=== PATIENT | female | born 1960 | race Caucasian/White ===

== ENCOUNTER → 2017-02-12 | Outpatient (CLI) | payer BC ==
[~2017-02-12] MED LIST: ASCA500 PO; CHOL1000 PO; LEVO125T72 PO; LPR100 PO; NORE1TAB34 PO; PROB1TAB16 PO
== END | disposition home or self-care (01) ==
LOC: C.PAPS 10:16
PROVIDERS: ATTEND Obstetrics & Gynecology
DX: Z01.411 Encounter for gynecological examination (general) (routine) with abnormal findings (principal); R87.616 Satisfactory cervical smear but lacking transformation zone

== ENCOUNTER → 2017-02-20 | Outpatient (CLI) | payer BC ==
--- NOTE | 2017-02-20 14:14 | DIAGNOSTIC IMAGING REPORT ---
RIGHT FOOT MIN 3 VIEWS ROUTINE CLINICAL HISTORY: RIGHT FOOT/HEEL PAIN Right pain COMPARISON: None. DISCUSSION: The bones and joint spaces appear intact. There is no evidence of fracture, dislocation or bony disease. There is no evidence for soft tissue swelling. IMPRESSION: Negative study. Electronically signed by: Omari Jonas M.D. 02/20/2017 2:12 PM Dictated Date/Time: 02/20/2017 2:12 PM
== END | disposition home or self-care (01) ==
LOC: C.RADBC 13:39
PROVIDERS: ATTEND Physician Assistant
DX: M79.671 Pain in right foot (principal)

== ENCOUNTER → 2018-02-13 | Outpatient (CLI) | payer OTHER | END | disposition home or self-care (01) | LOC: C.PAPS 17:28 | PROVIDERS: ATTEND Obstetrics & Gynecology | DX: Z12.4 Encounter for screening for malignant neoplasm of cervix (principal) ==

== ENCOUNTER 2022-09-11 23:02 | Observation (INO) ==
[2022-09-11] MEDS ORDERED: ONDANSETRON INJ 2 MG/ML 2 ML VIAL IV STA (23:21)
[2022-09-11] MEDS ORDERED: MoRPHine SULFATE 4 MG/ML 1 ML CARP\\VIAL IV STA (23:21)
[2022-09-11] MEDS ORDERED: SODIUM CHLORIDE 0.9% 500 ML IV STA (23:21)
[2022-09-11] MEDS ORDERED: KETOROLAC TROMETHAMINE 15 MG/ML VIAL IV STA (23:21)
--- NOTE | 2022-09-11 23:25 | Emergency Department Note ---
History of Present Illness General Chief complaint: Kidney Stone Stated complaint: KIDNEY STONE MOVING, NAUSEA Time Seen by Provider: 09/11/22 23:13 History of Present Illness Maximum Pain Intensity: 4 This 62-year-old with a history of kidney stones presents to the ER complaining of right flank pain concerning for kidney stone Location: Right flank Quality: Painful Severity: Moderate Duration: Today Timing: Today Context: Patient was concerned and came in Modifying factors: better with nothing; worse with nothing Patient denies chest pain, dyspnea, fevers, flulike illness. She states she has a known kidney stone in the kidney. Home Medications Medication Instructions Recorded Confirmed Type levothyroxine 125 mcg tablet 125 mcg PO 6XWK 07/13/18 09/12/22 History (Synthroid) lactobacillus combination no.4 3 0 mmu cells PO QPM 11/05/18 09/12/22 History billion cell capsule (Probiotic) potassium citrate 15 mEq (1,620 15 meq PO BID #180 tabs 11/30/19 09/12/22 Rx mg) tablet,extended release metoprolol tartrate 50 mg tablet 50 mg PO QAM 08/17/20 09/12/22 History calcium carbonate 600 mg calcium 600 mg PO DAILY 05/02/21 09/12/22 History (1,500 mg) tablet (Calcium) cholecalciferol (vitamin D3) 50 50 mcg PO DAILY 05/02/21 09/12/22 History mcg (2,000 unit) capsule pantoprazole 40 mg tablet,delayed 40 mg PO QAM 05/02/21 09/12/22 History release (Protonix) cetirizine 10 mg tablet 10 mg PO DAILY PRN allergies 05/18/21 09/12/22 History magnesium 500 mg tablet 500 mg PO QAM 05/18/21 09/12/22 History letrozole 2.5 mg tablet 2.5 mg PO QAM 09/04/21 09/12/22 History tumeric 100 mg-jorge alberto 150 mg-olive cap PO 09/04/21 06/03/22 History 50 mg-oreg 150 mg-caprylate capsule rimegepant 75 mg disintegrating 75 mg PO .COMPLEX #15 tabs 06/03/22 09/12/22 Rx tablet (Nurtec ODT) losartan 100 mg tablet 100 mg PO QAM 09/12/22 09/12/22 History Allergies Allergy/AdvReac Type Severity Reaction Status Date / Time metoclopramide AdvReac Unknown RASH Verified 06/03/22 11:07 Past Med/Surg History Medical History Anemia RESOLVED Breast cancer bilateral mastectomy June 2020-[facility] and will be starting chemo, FINISHED CHEMO NOV 02 2020 Hypertension Hypothyroidism Kidney stones current , no problems with Lumbar radiculopathy Migraines Surgical History H/O foot surgery L Foot MOrtons neuroma H/O lithotripsy H/O mastectomy bilateral History of arthroscopy RT KNEE History of bilateral tubal ligation History of colonoscopy History of dilatation and curettage X2 polyp removal at same time History of removal of Port-a-Cath (05/29/21) Access Port Removal, Left 05/29/2021 Port-A-Cath in place (08/22/20) Insertion of Mediport Left Subclavian with Fluoroscopy 08/22/2020 S/P epidural steroid injection HX Family History Father Diabetes Heart disease Grandfather Heart disease Grandmother Stroke Social History Smoking Status: Never smoker Second Hand Exposure: No; Hx Alcohol Use: Yes Alcohol type: wine and hard liquor Alcohol Intake Frequency: 2-3 x/Week Hx Substance Use: No Preferred Language: Bengali Communication Ability: Effective Visual Impairment: No Limitations Hearing Ability: Normal Physical Education Aide Required: No Beliefs That Will Affect Care: None marital status: Current Living Situation: Alone current occupational status: retired Feels Safe at Home: Yes Assistive Devices: None Review of Systems A total of 10 systems reviewed and were otherwise negative Physical Exam Vital Signs Vital Signs - 24 hr 09/11/22 23:06 09/11/22 23:46 09/11/22 23:47 Temperature 36.6 C Temperature Source Temporal Artery Scan Pulse Rate 86 72 Pulse Rate from SpO2 Sensor Respiratory Rate 18 16 Respiratory Effort / Characteristics Non-Labored Spontaneous Respiratory Depth Normal Blood Pressure 160/92 H Blood Pressure [Left Arm] 169/85 H Blood Pressure Mean 114 Blood Pressure Mean [Left Arm] 113 Blood Pressure Position Sitting Pulse Oximetry 96 93 Oxygen Delivery Method Room Air Room Air Sepsis Recent Fever Within 48 Hours No Sepsis New/Unexplained Change in Mental Status No Sepsis Action Taken by Nursing No Action Required 09/12/22 00:00 Temperature Temperature Source Pulse Rate 67 Pulse Rate from SpO2 Sensor 66 Respiratory Rate 18 Respiratory Effort / Characteristics Respiratory Depth Blood Pressure 146/88 H Blood Pressure [Left Arm] Blood Pressure Mean 107 Blood Pressure Mean [Left Arm] Blood Pressure Position Pulse Oximetry 94 Oxygen Delivery Method Room Air Sepsis Recent Fever Within 48 Hours Sepsis New/Unexplained Change in Mental Status Sepsis Action Taken by Nursing VITALS: Vitals are noted on the nurse's note and reviewed by myself. Vital signs stable. GENERAL: Pleasant female who appears in pain, in no acute distress, nondiaphor etic, well-developed well-nourished. SKIN: The skin was without rashes, erythema, edema, or bruising. There is no tenting of the skin. Capillary reflex less than 2 seconds. HEAD: Normocephalic atraumatic. EARS: External auditory canals clear, EYES: Pupils equal round and reactive to light and accommodation. Conjunctivae without injection, sclerae without icterus. Extraocular movements intact. NOSE: Patent, turbinates without inflammation or discharge. MOUTH: Mucous membranes moist. Pharynx without erythema or exudate. Uvula midline. Airway patent. Tongue does not deviate. NECK: Supple without nuchal rigidity. No lymphadenopathy. No thyromegaly. Cervical spine is nontender. No JVD. HEART: Regular rate and rhythm LUNGS: Clear to auscultation bilaterally without wheezes, rales or rhonchi. No retractions or accessory muscle use. ABDOMEN: Positive bowel sounds x 4. Normal tympanic percussion. Soft, nontender, without masses or organomegaly. Tanner sign negative. No guarding or rebound tenderness. No CVA tenderness MUSCULOSKELETAL: No muscle atrophy, erythema, or edema noted. NEURO: Patient was alert and oriented to person place and time. Normal sensation to light and sharp touch. No focal neurological deficits. Course Administered Medications Discontinued Medications Sodium Chloride (Nss) 500 mls @ 999 mls/hr IV .Q31M STA Stop: 09/11/22 23:51 Last Infusion: 09/12/22 00:10 Dose: 0 mls/hr Documented By: JEAN CARLOS Admin: 09/11/22 23:39 Dose: 999 mls/hr Documented By: JENA CARLOS Ceftriaxone Sodium (Rocephin) 2,000 mg in 70 mls @ 140 mls/hr IV NOW STA Stop: 09/12/22 00:37 Last Infusion: 09/12/22 00:46 Dose: 0 mls/hr Documented By: Admin: 09/12/22 00:19 Dose: 140 mls/hr Documented By: JEAN CARLOS Ketorolac Tromethamine (Ketorolac Tromethamine 15 Mg/Ml Vial) 10 mg IV NOW STA Stop: 09/11/22 23:22 Last Admin: 09/11/22 23:40 Dose: 10 mg Documented By: JEAN CARLOS Morphine Sulfate (Morphine Sulfate 4 Mg/Ml 1 Ml Carp\Vial) 4 mg IV NOW STA Stop: 09/11/22 23:22 Last Admin: 09/11/22 23:41 Dose: 4 mg Documented By: JEAN CARLOS Ondansetron HCl (Ondansetron Inj 2 Mg/Ml 2 Ml Vial) 4 mg IV NOW STA Stop: 09/11/22 23:22 Last Admin: 09/11/22 23:40 Dose: 4 mg Documented By: JEAN CARLOS Medical Decision Making Medical Records Attestation: I reviewed the patient's medical records. Home Medications Current Medication List: was personally reviewed by me Laboratory Data Attestation: I reviewed the patient's lab results. Result diagrams: 09/11/22 23:20 09/11/22 23:20 Lab Results 09/11/22 09/11/22 09/11/22 Range/Units 23:20 23:20 23:20 WBC 11.96 H (4.8-10.8) K/ul RBC 4.80 (3.93-5.22) M/uL Hgb 14.5 (12.0-16.0) g/dl Hct 41.2 (34.1-44.9) % MCV 85.8 (80.0-100.0) fL MCH 30.2 (25.0-34.0) pg MCHC 35.2 (32.0-36.0) g/dL RDW Std Deviation 38.0 (36.4-46.3) fL RDW Coeff of Magno 12.1 (11.5-14.5) % Plt Count 268 (130-400) K/uL MPV 10.7 (9.4-12.3) fL Immature Gran % (Auto) 0.3 % Neut % (Auto) 75.3 % Lymph % (Auto) 15.6 % [place] % (Auto) 6.4 % Eos % (Auto) 1.6 % Baso % (Auto) 0.8 % Neut # (Auto) 9.01 H (1.4-6.5) K/uL Lymph # (Auto) 1.86 (1.2-3.4) K/uL [place] # (Auto) 0.77 (0.24-0.82) K/uL Eos # (Auto) 0.19 (0-0.50) K/uL Baso # (Auto) 0.09 (0-0.2) K/uL Immature Gran # (Auto) 0.04 H (0.00-0.02) K/uL Sodium 136 (136-145) mmol/L Potassium 3.7 (3.5-5.1) mmol/L Chloride 102 (98-107) mmol/L Carbon Dioxide 25 (21-32) mmol/L Anion Gap 9 (3-11) BUN 27 H (6-23) mg/dl Creatinine 1.10 (0.6-1.2) mg/dl Est Cr Clr Drug Dosing 53.6 ml/min Est GFR ( Amer) 61.4 ml/min Est GFR (Non-Af Amer) 53.0 ml/min BUN/Creatinine Ratio 24.5 H (10-20) Glucose 115 H (70-99(Fasting)) mg/dl Calcium 10.5 H (8.5-10.1) mg/dl Total Bilirubin 0.6 (0.2-1.0) mg/dl AST 19 (13-39) U/L ALT 18 (7-52) U/L Alkaline Phosphatase 53 (34-104) U/L Total Protein 8.1 (6.0-8.3) gm/dl Albumin 5.1 H (3.4-5.0) gm/dl Globulin 3.0 (2.5-4.0) gm/dl Albumin/Globulin Ratio 1.7 (0.9-2) Urine Color Yellow Urine Appearance Clear (Clear) Urine pH 5.0 (4.5-7.5) Ur Specific [place] 1.014 (1.000-1.030) Urine Protein Negative (Negative) Urine Glucose (UA) Negative (Negative) Urine Ketones Negative (Negative) Urine Blood Trace H (Negative) Urine Nitrite Positive A (Negative) Urine Bilirubin Negative (Negative) Urine Urobilinogen Negative (Negative) Ur Leukocyte Esterase 3+ H (Negative) Urine WBC (Auto) 10-30 H (0-5) /hpf Urine RBC (Auto) 5-10 H (0-4) /hpf U Hyaline Cast (Auto) 1-5 (0-5) /lpf U Epithel Cells (Auto) 10-20 H (0-5) /lpf Urine Bacteria (Auto) 3+ H (Negative) SARS-CoV-2, RNA, NAAT (NEGATIVE) 09/12/22 Range/Units 00:18 WBC (4.8-10.8) K/ul RBC (3.93-5.22) M/uL Hgb (12.0-16.0) g/dl Hct (34.1-44.9) % MCV (80.0-100.0) fL MCH (25.0-34.0) pg MCHC (32.0-36.0) g/dL RDW Std Deviation (36.4-46.3) fL RDW Coeff of Magno (11.5-14.5) % Plt Count (130-400) K/uL MPV (9.4-12.3) fL Immature Gran % (Auto) % Neut % (Auto) % Lymph % (Auto) % [place] % (Auto) % Eos % (Auto) % Baso % (Auto) % Neut # (Auto) (1.4-6.5) K/uL Lymph # (Auto) (1.2-3.4) K/uL [place] # (Auto) (0.24-0.82) K/uL Eos # (Auto) (0-0.50) K/uL Baso # (Auto) (0-0.2) K/uL Immature Gran # (Auto) (0.00-0.02) K/uL Sodium (136-145) mmol/L Potassium (3.5-5.1) mmol/L Chloride (98-107) mmol/L Carbon Dioxide (21-32) mmol/L Anion Gap (3-11) BUN (6-23) mg/dl Creatinine (0.6-1.2) mg/dl Est Cr Clr Drug Dosing ml/min Est GFR ( Amer) ml/min Est GFR (Non-Af Amer) ml/min BUN/Creatinine Ratio (10-20) Glucose (70-99(Fasting)) mg/dl Calcium (8.5-10.1) mg/dl Total Bilirubin (0.2-1.0) mg/dl AST (13-39) U/L ALT (7-52) U/L Alkaline Phosphatase (34-104) U/L Total Protein (6.0-8.3) gm/dl Albumin (3.4-5.0) gm/dl Globulin (2.5-4.0) gm/dl Albumin/Globulin Ratio (0.9-2) Urine Color Urine Appearance (Clear) Urine pH (4.5-7.5) Ur Specific [place] (1.000-1.030) Urine Protein (Negative) Urine Glucose (UA) (Negative) Urine Ketones (Negative) Urine Blood (Negative) Urine Nitrite (Negative) Urine Bilirubin (Negative) Urine Urobilinogen (Negative) Ur Leukocyte Esterase (Negative) Urine WBC (Auto) (0-5) /hpf Urine RBC (Auto) (0-4) /hpf U Hyaline Cast (Auto) (0-5) /lpf U Epithel Cells (Auto) (0-5) /lpf Urine Bacteria (Auto) (Negative) SARS-CoV-2, RNA, NAAT NEGATIVE (NEGATIVE) Imaging Data Attestation: I personally reviewed and interpreted this imaging study as follows: MDM Narrative Prior records/ancillary studies reviewed. Triage Nursing notes reviewed. Additional history obtained from the family. The patient's history was concerning for flank pain. Differential diagnosis: Etiologies such as renal colic, appendicitis, diverticulitis, mesenteric ischemia, aortic pathology, infections, inflammatory bowel disease, PUD, biliary pathology, UTI, as well as others were entertained. Physical examination findings: As above. ER treatment provided: Toradol morphine Zofran, Rocephin On reassessment the patient felt better. Diagnostic interpretation by me: The labs revealed mild leukocytosis. Urinalysis revealed concerns for UTI. Urine sent for culture. No prior urine culture for review. Imaging studies: Preliminary Findings Only See Final Report For Complete Findings CT ABDOMEN & PELVIS Without Contrast: There are 2-3 small stones posteriorly in the midline of the bladder, likely free in the bladder. There is mild right hydroureteronephrosis without current evidence of obstructing right ureteral calculus. There is a 5 mm nonobstructing calculus in the right renal pelvis. The left kidney is unremarkable without hydronephrosis or calculus. No other acute findings. No evidence of bowel obstruction, diverticulitis or appendicitis. Radiologist: Denis Peña MD Consultation: A consultation was placed with the hospitalist. The case was discussed and diagnostics were reviewed. The patient was evaluated in the ER for further treatment. It appears that the patient has UTI with hydronephrosis with bladder stones. Patient most likely had a stone that dropped into the bladder. She has a urine infection. Patient was started on antibiotics. Medicine was consulted. She will be evaluated for possible admission. By the evaluation outlined above emergent etiologies such as appendicitis, diverticulitis, mesenteric ischemia, aortic pathology, inflammatory bowel disease, PUD, biliary pathology, as well as others were deemed relatively unlikely. The pt informed about the findings as listed above. All questions were answered and pleased with the treatment. The chart was completed utilizing [employer] Speech voice recognition software. Grammatical errors, random word insertions, pronoun errors, and incomplete sentences are an occassional consequence of this system due to software limitations, ambient noise, and hardware issues. Any formal questions or concerns about the content, text, or information contained within the body of this dictation should be directly addressed to the physician volunteer services assistant for clarification. Impression & Plan Renal colic on right side, Kidney stones, Acute UTI Discharge Plan Visit Data Chief Complaint: Kidney Stone Stated Complaint: KIDNEY STONE MOVING, NAUSEA ED Provider: Quentin Gautam ED Midlevel Provider: Karen Bourgeois Discharge Problem: Renal colic on right side, Kidney stones, Acute UTI Patient Disposition: Being Evaluated by Hospitalist Condition: Good Forms Stand Alone Forms: My [employer] Prescriptions Prescriptions: No Action levothyroxine [Synthroid] 125 mcg tablet 125 mcg PO [id number] Label Comments: do not take on sundays Rx Instructions: dont take on sundays potassium citrate 15 mEq tablet extended release 15 meq PO BID Qty: 180 3RF letrozole 2.5 mg tablet 2.5 mg PO QAM [id number]-[id number]-djspa-oreg-capryl 100 mg-150 mg- 50 mg-150 mg capsule PO calcium carbonate [Calcium 600] 600 mg calcium (1,500 mg) tablet 600 mg PO DAILY cholecalciferol (vitamin D3) 50 mcg (2,000 unit) capsule 50 mcg PO DAILY vitamin E mixed 400 unit capsule 400 unit PO DAILY pantoprazole [Protonix] 40 mg tablet,delayed release (DR/EC) 40 mg PO QAM metoprolol tartrate 50 mg tablet 50 mg PO QAM Nurtec ODT 75 mg tablet,disintegrating 75 mg PO .COMPLEX Qty: 15 5RF Rx Instructions: 75 mg PO every other day to prevent migraines. Do not take as needed. Probiotic 3 billion cell Capsule 0 mmu cells PO QPM Rx Instructions: unknown strength magnesium 500 mg Tablet 500 mg PO QAM cetirizine 10 mg Tablet 10 mg PO DAILY PRN (Reason: allergies) losartan 100 mg tablet 100 mg PO QAM Referrals Referrals: Juanita Dooley MD [Primary Care Provider] -
[2022-09-11 23:39] LABS: Basophils # (auto) 0.09 K/uL (0-0.2); Basophils % (auto) 0.8 %; Eosinophils # (auto) 0.19 K/uL (0-0.50); Eosinophils % (auto) 1.6 %; Hematocrit (blood only) 41.2 % (34.1-44.9); Hemoglobin 14.5 g/dl (12.0-16.0); Immature Granulocytes # (auto) 0.04 K/uL (0.00-0.02); Immature Granulocytes % (auto) 0.3 %; Lymphocytes # (auto) 1.86 K/uL (1.2-3.4); Lymphocytes % (auto) 15.6 %; Mean Corpuscular Hemoglobin 30.2 pg (25.0-34.0); Mean Corpuscular Hgb Conc 35.2 g/dL (32.0-36.0); Mean Corpuscular Volume 85.8 fL (80.0-100.0); Mean Platelet Volume 10.7 fL (9.4-12.3); Monocytes # (auto) 0.77 K/uL (0.24-0.82); Monocytes % (auto) 6.4 %; Neutrophils # (auto) 9.01 K/uL (1.4-6.5); Neutrophils % (auto) 75.3 %; Platelet Count 268 K/uL (130-400); RDW Coefficient of Variation 12.1 % (11.5-14.5); White Blood Count 11.96 K/ul (4.8-10.8)
[2022-09-11 23:42] LABS: Appearance Urine Clear (Clear); Bacteria Urine Automated 3+ (Negative); Bilirubin Urine Negative (Negative); Blood Urine Trace (Negative); Color Urine Yellow; Glucose Urine UA Negative (Negative); Ketones Urine Negative (Negative); Leukocyte Esterase Urine 3+ (Negative); Nitrite Urine Positive (Negative); Protein Urine Negative (Negative); Specific Gravity Urine 1.014 (1.000-1.030); Urobilinogen Urine Negative (Negative)
[2022-09-12] MEDS ORDERED: cefTRIAXone SODIUM 2,000 MG/70 ML BAG IV STA (00:08)
[2022-09-12 00:16] LABS: Albumin Globulin Ratio 1.7 (0.9-2); Albumin Level 5.1 gm/dl (3.4-5.0); BUN Creatinine Ratio 24.5 (10-20); Bilirubin,Total 0.6 mg/dl (0.2-1.0); Calcium 10.5 mg/dl (8.5-10.1); Creatinine Clr Calc Pharmacy 53.6 ml/min; Est GFR (African American) 61.4 ml/min; Potassium 3.7 mmol/L (3.5-5.1); Total Protein 8.1 gm/dl (6.0-8.3)
--- NOTE | 2022-09-12 00:43 | History & Physical Report ---
Date of Service September 12, 2022 Assessment & Plan (1) Hydronephrosis of right kidney: Plan: Right hydroureteronephrosis- Complicated urinary tract infection with likely passage of two 3 mm kidney stones noted in the bladder on CT Follow urine culture and sensitivity Ceftriaxone 2 g IV daily NSS + KCl 20 MEQ's at 100 mils per hour Acetaminophen 650 mg p.o. every 6 hours as needed mild pain or fever Morphine sulfate 2 mg IV every 3 hours as needed moderate pain Morphine sulfate 4 mg IV every 3 hours as needed for severe pain Zofran 4 mg IV every 6 hours as needed (2) Kidney stones: Plan: CT notes to 3 mm kidney stones free-floating in the bladder, which likely had been obstructive until passage Patient with history of uric acid kidney stones Continue potassium citrate, calcium carbonate and vitamin D (3) Migraine: Plan: Continue rimegepant (4) Hypothyroidism: Plan: continue levothyroxine (5) GERD (gastroesophageal reflux disease): Plan: Continue pantoprazole (6) Hypertension: Plan: Continue metoprolol tartrate and losartan (7) Breast cancer: Plan: Continue letrozole History of Present Illness Chief Complaint: The patient presents to the emergency department with acute onset of right flank pain around 9:00 PM this evening Primary Care Provider: Juanita Dooley MD The patient is a 62-year-old female with a past medical history including sleep apnea, migraine, hypothyroidism, hypertension, GERD, allergic rhinitis, breast cancer, migraine, history of uric acid kidney stones, and B12 deficiency. The patient presents to the emergency department with acute onset of right flank pain, reminiscent of her previous kidney stone pain. Allergies Allergy/AdvReac Type Severity Reaction Status Date / Time metoclopramide AdvReac Unknown RASH Verified 09/12/22 01:19 Home Medications Medication Instructions Recorded Confirmed Type levothyroxine 125 mcg tablet 125 mcg PO 6XWK 07/13/18 09/12/22 History (Synthroid) lactobacillus combination no.4 3 0 mmu cells PO QPM 11/05/18 09/12/22 History billion cell capsule (Probiotic) potassium citrate 15 mEq (1,620 15 meq PO BID #180 tabs 11/30/19 09/12/22 Rx mg) tablet,extended release metoprolol tartrate 50 mg tablet 50 mg PO QAM 08/17/20 09/12/22 History calcium carbonate 600 mg calcium 600 mg PO DAILY 05/02/21 09/12/22 History (1,500 mg) tablet (Calcium) cholecalciferol (vitamin D3) 50 50 mcg PO DAILY 05/02/21 09/12/22 History mcg (2,000 unit) capsule pantoprazole 40 mg tablet,delayed 40 mg PO QAM 05/02/21 09/12/22 History release (Protonix) cetirizine 10 mg tablet 10 mg PO DAILY PRN allergies 05/18/21 09/12/22 History magnesium 500 mg tablet 500 mg PO QAM 05/18/21 09/12/22 History letrozole 2.5 mg tablet 2.5 mg PO QAM 09/04/21 09/12/22 History tumeric 100 mg-jorge alberto 150 mg-olive 1 cap PO QAM 09/04/21 09/12/22 History 50 mg-oreg 150 mg-caprylate capsule rimegepant 75 mg disintegrating 75 mg PO .COMPLEX #15 tabs 06/03/22 09/12/22 Rx tablet (Nurtec ODT) ascorbic acid (vitamin C) 1,000 mg 1 g PO QAM 09/12/22 09/12/22 History tablet (Vitamin C) cyanocobalamin (vitamin B-12) 1,000 mcg PO QAM 09/12/22 09/12/22 History 1,000 mcg tablet (Vitamin B-12) losartan 100 mg tablet 100 mg PO QAM 09/12/22 09/12/22 History Past Med/Surg History Medical History (Updated 09/12/22 @ 02:37 by Chris Hall MD) Anemia RESOLVED Breast cancer bilateral mastectomy June 2020-[facility] and will be starting chemo, FINISHED CHEMO NOV 02 2020 GERD (gastroesophageal reflux disease) Hypertension Hypothyroidism Kidney stones current , no problems with Lumbar radiculopathy Migraines Surgical History H/O foot surgery L Foot MOrtons neuroma H/O lithotripsy H/O mastectomy bilateral History of arthroscopy RT KNEE History of bilateral tubal ligation History of colonoscopy History of dilatation and curettage X2 polyp removal at same time History of removal of Port-a-Cath (05/29/21) Access Port Removal, Left 05/29/2021 Port-A-Cath in place (08/22/20) Insertion of Mediport Left Subclavian with Fluoroscopy 08/22/2020 S/P epidural steroid injection HX Family History Father Diabetes Heart disease Grandfather Heart disease Grandmother Stroke Social History Smoking Status: Never smoker Second Hand Exposure: No; Hx Alcohol Use: Yes Alcohol type: wine and hard liquor Alcohol Intake Frequency: 2-3 x/Week Hx Substance Use: No Preferred Language: French Communication Ability: Effective Visual Impairment: No Limitations Hearing Ability: Normal Bottle Dealer Required: No Beliefs That Will Affect Care: None marital status: Current Living Situation: Alone current occupational status: retired Feels Safe at Home: Yes Assistive Devices: None Review of Systems Review of Systems: The patient denies chest pain, palpitations, shortness of breath, dyspnea on exertion, cough, lower extremity swelling, sore throat, fevers, chills, sweats, vomiting, diarrhea , constipation, blood in urine or stool, dysuria, urinary frequency or urgency, lightheadedness, dizziness, headache, memory loss, loss of consciousness, rash, abnormal bruising or bleeding, imbalance, focal or generalized weakness, numbness or tingling in arms or legs, generalized arthralgias or myalgias, neck pain, or night sweats. The review of systems is otherwise negative other than for that already noted above, and at least 10 systems have been reviewed. Physical Exam Physical Exam: The patient is awake, alert and oriented 3, well developed and well nourished, normocephalic and atraumatic, lying in bed and in no acute distress. HEENT--PERRL, EOMI, mucous membranes and oropharynx mildly dry. Neck--supple. No JVD. No bruits. Thyroid normal, trachea midline, no adenopathy. Heart--normal S1 and S2. No murmurs, rubs or gallops. Lungs--clear bilaterally, no respiratory distress, no accessory muscle use. Abdomen--normal bowel sounds and soft. Nontender. Nondistended, no hernias or masses, no organomegaly. Extremities--no cyanosis or clubbing. No edema. Dermatologic--normal skin turgor, normal color, no abnormal lymph nodes, no rash. Neurologic--cranial nerves II through XII grossly intact. Rheumatologic--normal range of motion. Psychiatric--normal affect. Results & Data Results & Data ([facility]) Vital Signs (Past 12 Hours) Vital Signs Temp Pulse Resp BP BP Pulse Ox O2 Del Method 09/12/22 00:00 67 18 146/88 H 94 Room Air 09/11/22 23:47 169/85 H 09/11/22 23:46 72 16 93 Room Air 09/11/22 23:06 36.6 C 86 18 160/92 H 96 Room Air Laboratory Results Laboratory Results WBC 11.96 K/ul (4.8-10.8) H 09/11/22 23:20 RBC 4.80 M/uL (3.93-5.22) 09/11/22 23:20 Hgb 14.5 g/dl (12.0-16.0) 09/11/22 23:20 Hct 41.2 % (34.1-44.9) 09/11/22 23:20 MCV 85.8 fL (80.0-100.0) 09/11/22 23:20 MCH 30.2 pg (25.0-34.0) 09/11/22 23:20 MCHC 35.2 g/dL (32.0-36.0) 09/11/22 23:20 RDW Std Deviation 38.0 fL (36.4-46.3) 09/11/22 23:20 RDW Coeff of Magno 12.1 % (11.5-14.5) 09/11/22 23:20 Plt Count 268 K/uL (130-400) 09/11/22 23:20 MPV 10.7 fL (9.4-12.3) 09/11/22 23:20 Immature Gran % (Auto) 0.3 % 09/11/22 23:20 Neut % (Auto) 75.3 % 09/11/22 23:20 Lymph % (Auto) 15.6 % 09/11/22 23:20 [place] % (Auto) 6.4 % 09/11/22 23:20 Eos % (Auto) 1.6 % 09/11/22 23:20 Baso % (Auto) 0.8 % 09/11/22 23:20 Neut # (Auto) 9.01 K/uL (1.4-6.5) H 09/11/22 23:20 Lymph # (Auto) 1.86 K/uL (1.2-3.4) 09/11/22 23:20 [place] # (Auto) 0.77 K/uL (0.24-0.82) 09/11/22 23:20 Eos # (Auto) 0.19 K/uL (0-0.50) 09/11/22 23:20 Baso # (Auto) 0.09 K/uL (0-0.2) 09/11/22 23:20 Immature Gran # (Auto) 0.04 K/uL (0.00-0.02) H 09/11/22 23:20 Sodium 136 mmol/L (136-145) 09/11/22 23:20 Potassium 3.7 mmol/L (3.5-5.1) 09/11/22 23:20 Chloride 102 mmol/L (98-107) 09/11/22 23:20 Carbon Dioxide 25 mmol/L (21-32) 09/11/22 23:20 Anion Gap 9 (3-11) 09/11/22 23:20 BUN 27 mg/dl (6-23) H 09/11/22 23:20 Creatinine 1.10 mg/dl (0.6-1.2) 09/11/22 23:20 Est Cr Clr Drug Dosing 53.6 ml/min 09/11/22 23:20 Est GFR ( Amer) 61.4 ml/min 09/11/22 23:20 Est GFR (Non-Af Amer) 53.0 ml/min 09/11/22 23:20 BUN/Creatinine Ratio 24.5 (10-20) H 09/11/22 23:20 Glucose 115 mg/dl (70-99(Fasting)) H 09/11/22 23:20 Calcium 10.5 mg/dl (8.5-10.1) H 09/11/22 23:20 Total Bilirubin 0.6 mg/dl (0.2-1.0) 09/11/22 23:20 AST 19 U/L (13-39) 09/11/22 23:20 ALT 18 U/L (7-52) 09/11/22 23:20 Alkaline Phosphatase 53 U/L (34-104) 09/11/22 23:20 Total Protein 8.1 gm/dl (6.0-8.3) 09/11/22 23:20 Albumin 5.1 gm/dl (3.4-5.0) H 09/11/22 23:20 Globulin 3.0 gm/dl (2.5-4.0) 09/11/22 23:20 Albumin/Globulin Ratio 1.7 (0.9-2) 09/11/22 23:20 Urine Color Yellow 09/11/22 23:20 Urine Appearance Clear (Clear) 09/11/22 23:20 Urine pH 5.0 (4.5-7.5) 09/11/22 23:20 Ur Specific [place] 1.014 (1.000-1.030) 09/11/22 23:20 Urine Protein Negative (Negative) 09/11/22 23:20 Urine Glucose (UA) Negative (Negative) 09/11/22 23:20 Urine Ketones Negative (Negative) 09/11/22 23:20 Urine Blood Trace (Negative) H 09/11/22 23:20 Urine Nitrite Positive (Negative) A 09/11/22 23:20 Urine Bilirubin Negative (Negative) 09/11/22 23:20 Urine Urobilinogen Negative (Negative) 09/11/22 23:20 Ur Leukocyte Esterase 3+ (Negative) H 09/11/22 23:20 Urine WBC (Auto) 10-30 /hpf (0-5) H 09/11/22 23:20 Urine RBC (Auto) 5-10 /hpf (0-4) H 09/11/22 23:20 U Hyaline Cast (Auto) 1-5 /lpf (0-5) 09/11/22 23:20 U Epithel Cells (Auto) 10-20 /lpf (0-5) H 09/11/22 23:20 Urine Bacteria (Auto) 3+ (Negative) H 09/11/22 23:20 SARS-CoV-2, RNA, NAAT NEGATIVE (NEGATIVE) 09/12/22 00:18 Diagnostic Findings [facility] Patient: TRISHA REED (Female) : 56 Status: ER Date: 09/11/22 23:42 Room #: History: PAIN AT RIGHT FLANK WITH HX OF KIDNEY STONES Slices: [phone] Priors: Tech: Anjum Nolen @ [phone] Exams: CT ABDOMEN & PELVIS Without Contrast Contrast: Accession Numbers: [id number] Referring Physician: MANUELITOHAMZAH^Herminia Preliminary Findings Only See Final Report For Complete Findings CT ABDOMEN & PELVIS Without Contrast: There are 2-3 small stones posteriorly in the midline of the bladder, likely free in the bladder. There is mild right hydroureteronephrosis without current evidence of obstructing right ureteral calculus. There is a 5 mm nonobstructing calculus in the right renal pelvis. The left kidney is unremarkable without hydronephrosis or calculus. No other acute findings. No evidence of bowel obstruction, diverticulitis or appendicitis. Radiologist: Denis Peña MD Study ready at 23:56 and initial results transmitted at 00:02 *This report constitutes a preliminary interpretation only. Non-acute find ings felt to be unrelated to the clinical presentation may not be discussed in this report. The study will be interpreted and a final report will be generated by the local Radiologist the following shift. To reach the [facility] radiology department call [phone]. If a discrepancy is found between the preliminary and final interpretations of this study, please notify us via our Client Portal at [email or web address] Mobile, under QA Exams. You can also fax this report with a description of the discrepancy, or include the final report, to our daytime fax number [phone]. If faxing, please indicate the severity of discrepancy using one of the following categories: [ ] 1 - Agree/Informational [ ] 2 - Unlikely to Affect Management [ ] 3 - Possible Eventual Change of Management [ ] 4 - Probable Immediate Change of Management For all other patient related information, please fax us at [phone]. [id number] Code Status & VTE Plan Code Status Full code VTE Prophylaxis Plan VTE Prophylaxis will be ordered: Yes (1) Breast cancer Breast location: unspecified site of breast Estrogen receptor status: unspecified Patient sex: female Laterality: right Qualified Code(s): C50.911 - Malignant neoplasm of unspecified site of right female breast
[2022-09-12] MEDS ORDERED: MoRPHine SULFATE 4 MG/ML 1 ML CARP\\VIAL IV PRN (02:20)
[2022-09-12] MEDS ORDERED: CETIRIZINE HCL 10 MG TABLET PO PRN (02:20)
[2022-09-12] MEDS ORDERED: MoRPHine SULFATE 2 MG/ML CARP IV PRN (02:20)
--- NOTE | 2022-09-12 02:42 | Billing Data ---
Date of Service September 12, 2022 Coding Level of Care Code 58707 Initial Inpt Care Lvl 3
[2022-09-12] MEDS: NSS + 20MEQ KCL 20 MEQ/1,000 ML BAG IV SCH ×2 (03:10→15:31)
[2022-09-12] MEDS ORDERED: LEVOTHYROXINE SODIUM 125 MCG TABLET PO SCH (06:30)
[2022-09-12 07:36] LABS: Basophils # (auto) 0.06 K/uL (0-0.2); Basophils % (auto) 0.7 %; Eosinophils # (auto) 0.07 K/uL (0-0.50); Eosinophils % (auto) 0.8 %; Hematocrit (blood only) 39.2 % (34.1-44.9); Hemoglobin 13.7 g/dl (12.0-16.0); Immature Granulocytes # (auto) 0.02 K/uL (0.00-0.02); Immature Granulocytes % (auto) 0.2 %; Lymphocytes # (auto) 2.17 K/uL (1.2-3.4); Lymphocytes % (auto) 24.8 %; Mean Corpuscular Hemoglobin 30.2 pg (25.0-34.0); Mean Corpuscular Hgb Conc 34.9 g/dL (32.0-36.0); Mean Corpuscular Volume 86.5 fL (80.0-100.0); Mean Platelet Volume 10.9 fL (9.4-12.3); Monocytes # (auto) 0.59 K/uL (0.24-0.82); Monocytes % (auto) 6.8 %; Neutrophils # (auto) 5.83 K/uL (1.4-6.5); Neutrophils % (auto) 66.7 %; Platelet Count 231 K/uL (130-400); RDW Coefficient of Variation 12.3 % (11.5-14.5); RDW Standard Deviation 38.9 fL (36.4-46.3); Red Blood Count 4.53 M/uL (3.93-5.22); White Blood Count 8.74 K/ul (4.8-10.8)
[2022-09-12 08:05] LABS: Albumin Level 4.2 gm/dl (3.4-5.0); BUN Creatinine Ratio 23.2 (10-20); Calcium 9.4 mg/dl (8.5-10.1); Creatinine Clr Calc Pharmacy 62.1 ml/min; Est GFR (African American) 73.4 ml/min; Est GFR (Non-African American) 63.3 ml/min; Phosphorus 4.8 mg/dl (2.5-4.9); Potassium 4.1 mmol/L (3.5-5.1)
[2022-09-12] MEDS: POTASSIUM CITRATE 10 MEQ TAB PO SCH ×2 (08:18→15:30)
[2022-09-12] MEDS ORDERED: LETROZOLE 2.5 MG TAB PO SCH (09:00)
[2022-09-12] MEDS ORDERED: LOSARTAN POTASSIUM 50 MG TAB PO SCH (09:00)
[2022-09-12] MEDS ORDERED: MAGNESIUM OXIDE 400 MG TAB PO SCH (09:00)
[2022-09-12] MEDS ORDERED: PANTOprazole 40 MG TAB PO SCH (09:00)
[2022-09-12] MEDS ORDERED: METOPROLOL TARTRATE 50 MG TAB PO SCH (09:00)
[2022-09-12] MEDS ORDERED: CHOLECALCIFEROL 1,000 UNITS 25 MCG TAB PO SCH (09:00)
--- NOTE | 2022-09-12 09:41 | CT Scan Report ---
CT abd pelvis wo con CLINICAL HISTORY: flank pain, hx stones and breast CA TECHNIQUE: Helical axial images of the abdomen and pelvis were obtained. Automated dose lowering tech niques and/or adjustment according to patient size were utilized for this exam. Low bilateral breast implants are noted. CT DOSE: 1212.02 mGy.cm COMPARISON: None available at the time of this dictation. FINDINGS: Lower chest: No acute abnormality. Liver: Unremarkable. No focal lesions are seen. Gallbladder and biliary tree: No calcified gallstones. Normal caliber wall. No intra- or extrahepatic biliary ductal dilation. Pancreas: Unremarkable, no focal lesions. Spleen: Unremarkable. Adrenals: Unremarkable. Kidneys and ureters: Nonobstructive stones are seen bilaterally. There is right hydroureter and mild hydronephrosis without evidence of obstructing stone. Subcentimeter exophytic cystic-appearing lesion is seen in the left kidney inferior pole. Bladder: Punctate stone is noted in the bladder. Reproductive organs: Unremarkable. Bowel: Unremarkable appearance of the bowel. The appendix is normal. There is a small hiatal hernia. Lymph nodes Retroperitoneal: Unremarkable. Pelvic: Unremarkable. Mesenteric: Unremarkable. Peritoneum: Normal. Vessels: Atherosclerotic calcifications are seen. Abdominal wall: A fat-containing umbilical hernia is seen. Bones: Degenerative changes in the visualized spine. There is grade 1 anterolisthesis of L4-L5. IMPRESSION: Right hydronephrosis and hydroureter likely secondary to recently passed stone which is now in the bl adder. Additional nonobstructing stones are noted. ACT 112: Negative or not required by law. Electronically signed by: Delmar Singh M.D. 09/12/2022 9:40 AM
--- NOTE | 2022-09-12 11:37 | Discharge Summary ---
Date of Service September 12, 2022 Admission HPI Per Admitting Provider The patient is a 62-year-old female with a past medical history including sleep apnea, migraine, hypothyroidism, hypertension, GERD, allergic rhinitis, breast cancer, migraine, history of uric acid kidney stones, and B12 deficiency. The patient presents to the emergency department with acute onset of right flank pain, reminiscent of her previous kidney stone pain. Principal Diagnosis 1. Right hydronephrosis d/t nephrolithiasis 2. UTI Discharge Exam GENERAL: 62 yo Well-developed, well-nourished WF. NAD. LUNGS: Clear to auscultation bilaterally. No W/R/R. CARDIOVASCULAR: Regular rate and rhythm. ABDOMEN: Soft, non-tender and non-distended. BS normoactive x 4 quad. EXTREMITIES: No edema. Non-tender. Peripheral pulses +2/4. NEUROLOGIC: A&O x3. PSYCHIATRIC: Cooperative. Appropriate mood and affect. SKIN: Warm, dry, intact. Discharge Data Allergies Allergy/AdvReac Type Severity Reaction Status Date / Time metoclopramide AdvReac Unknown RASH Verified 09/12/22 01:19 Consultations 09/12/22 00:09 ED Decision to Admit Stat Ordered Studies Abdomen/Pelvis CT 09/11/22 23:21 CT abd pelvis wo con CLINICAL HISTORY: flank pain, hx stones and breast CA TECHNIQUE: Helical axial images of the abdomen and pelvis were obtained. Automated dose lowering techniques and/or adjustment according to patient size were utilized for this exam. Low bilateral breast implants are noted. CT DOSE: 1212.02 mGy.cm COMPARISON: None available at the time of this dictation. FINDINGS: Lower chest: No acute abnormality. Liver: Unremarkable. No focal lesions are seen. Gallbladder and biliary tree: No calcified gallstones. Normal caliber wall. No intra- or extrahepatic biliary ductal dilation. Pancreas: Unremarkable, no focal lesions. Spleen: Unremarkable. Adrenals: Unremarkable. Kidneys and ureters: Nonobstructive stones are seen bilaterally. There is right hydroureter and mild hydronephrosis without evidence of obstructing stone. Subcentimeter exophytic cystic-appearing lesion is seen in the left kidney inferior pole. Bladder: Punctate stone is noted in the bladder. Reproductive organs: Unremarkable. Bowel: Unremarkable appearance of the bowel. The appendix is normal. There is a small hiatal hernia. Lymph nodes Retroperitoneal: Unremarkable. Pelvic: Unremarkable. Mesenteric: Unremarkable. Peritoneum: Normal. Vessels: Atherosclerotic calcifications are seen. Abdominal wall: A fat-containing umbilical hernia is seen. Bones: Degenerative changes in the visualized spine. There is grade 1 anterolisthesis of L4-L5. IMPRESSION: Right hydronephrosis and hydroureter likely secondary to recently passed stone which is now in the bladder. Additional nonobstructing stones are noted. ACT 112: Negative or not required by law. Electronically signed by: Delmar Singh M.D. 09/12/2022 9:40 AM Hospital Course (1) Hydronephrosis of right kidney: Right hydroureteronephrosis- Complicated urinary tract infection with likely passage of two 3 mm kidney stones noted in the bladder on CT Follow urine culture and sensitivity Ceftriaxone 2 g IV daily NSS + KCl 20 MEQ's at 100 mls per hour Acetaminophen 650 mg p.o. every 6 hours as needed mild pain or fever Morphine sulfate 2 mg IV q3h for moderate pain and 4mg IV q3h for severe pain Zofran 4 mg IV every 6 hours ordered as needed (2) Kidney stones: CT notes to 3 mm kidney stones free-floating in the bladder, which likely had been obstructive until passage Patient with history of uric acid kidney stones Continue potassium citrate, calcium carbonate and vitamin D (3) Migraine: Continue rimegepant (4) Hypothyroidism: continue levothyroxine (5) GERD (gastroesophageal reflux disease): Continue pantoprazole (6) Hypertension: Continue metoprolol tartrate and losartan (7) Breast cancer: Continue letrozole Plan Patient's urine appears infected, given recent passage of stones that are currently in bladder, will continue to treat for total of 7 days with Cefdinir upon d/c. Arrange f/u with urology. I recommend pcp f/u within 1 week. She is medically and hemodynamically stable for discharge home today. Plan d/w Dr. Parviz English who is in agreement. Total Time Total Time Spent Total Time Spent (In Minutes): <30 minutes Discharge Plan Discharge Items Patient Disposition: Home - Self-Care Reason For Visit: RIGHT HYDRONEPHROSIS,URETERAL STONES Discharge Diagnosis: swollen right kidney due to kidney stones urinary tract infection Condition on Discharge: Good Activity: Resume your previous activity Non-emergency contact: Primary Care Provider Call non-emergency contact if: you have any medication questions Follow-up/Referrals: Marcie Cedeno CRNP [Nurse Practitioner] - 09/23/22 2:00 pm (Please arrive 15 minutes prior to appointment time.) Juanita Dooley MD [Primary Care Provider] - 09/19/22 2:10 pm (Follow up appointment will be with in the [facility] office) Diet: Regular Addtl Attending Provider Instructions: You were hospitalized due to kidney swelling that was due to kidney stones that have since passed through the ureter into your bladder. You have been started on antibiotics as your urine does appear to be infected. So, we will plan to continue you on a course of antibiotics for the next 5 days. Please complete the course. You will be due for a dose tomorrow (09/13) in the morning. The antibiotic is called Cefdinir. Please take it twice a day until gone. At this point, since the kidney stones are through the ureters and are not stuck, you may not need to see a urologist. However, an appointment has been made on your behalf. I would at least go to the follow up appointment and then at that time they may inform you that you do not need to follow up after that initial appointment. It is also recommended that you follow up with your primary care provider within 1 week of discharge from the hospital. If you have any questions/concerns after you leave the hospital, feel free to contact the nonemergency number listed on your discharge paperwork. In the event of a medical emergency, call 911. Pending Studies at Discharge: No Stand-Alone Forms: [facility], Smoking Cessation Medications and DC Order Prescriptions: New cefdinir 300 mg capsule 300 mg PO BID Qty: 10 0RF Continued levothyroxine [Synthroid] 125 mcg tablet 125 mcg PO 6XWK Label Comments: do not take on sundays Rx Instructions: dont take on sundays potassium citrate 15 mEq tablet extended release 15 meq PO BID Qty: 180 3RF letrozole 2.5 mg tablet 2.5 mg PO QAM [id number]-vtvs-ewdny-oreg-capryl 100 mg-150 mg- 50 mg-150 mg capsule 1 cap PO QAM calcium carbonate [Calcium 600] 600 mg calcium (1,500 mg) tablet 600 mg PO DAILY cholecalciferol (vitamin D3) 50 mcg (2,000 unit) capsule 50 mcg PO DAILY pantoprazole [Protonix] 40 mg tablet,delayed release (DR/EC) 40 mg PO QAM metoprolol tartrate 50 mg tablet 50 mg PO QAM Nurtec ODT 75 mg tablet,disintegrating 75 mg PO .COMPLEX Qty: 15 5RF Rx Instructions: 75 mg PO every other day to prevent migraines. Do not take as needed. Probiotic 3 billion cell Capsule 0 mmu cells PO QPM Rx Instructions: unknown strength magnesium 500 mg Tablet 500 mg PO QAM cetirizine 10 mg Tablet 10 mg PO DAILY PRN (Reason: allergies) losartan 100 mg tablet 100 mg PO QAM cyanocobalamin (vitamin B-12) [Vitamin B-12] 1,000 mcg Tablet 1,000 mcg PO QAM ascorbic acid (vitamin C) [Vitamin C] 1,000 mg Tablet 1 g PO QAM Discharge Orders: Discharge Order (Routine); Ordered 09/12/22 Ordered By: Valeria Feliciano Admission Data Admit Date/Time: 09/12/22 00:43 Attending Provider: Parviz English Admit Provider: Chris Hall Primary Care Provider: Juanita Dooley Other Providers: Chris Hall Other Interventions: Discharge Summary Assessment (RN) Last Done: 09/12/22 16:10 Supervising Physician Co-Signing Physician Notes I supervised Valeria Feliciano PA-C on the care of this patient. Patient was admitted <24 hours prior to discharge. The plan is as written in her note except for any following changes/exceptions: None 62 F here w/ kidney stone. Passed. Discharge on abx with urology f/u. Coding Level of Care Code None Diagnoses Hydronephrosis of right kidney N13.30 Kidney stones N20.0 Migraine G43.909 Hypothyroidism E03.9 GERD (gastroesophageal reflux disease) K21.9 Hypertension I10 Breast cancer C50.911 Breast location: unspecified site of breast Estrogen receptor status: unspecified Laterality: right Patient sex: female
[2022-09-12] MEDS ORDERED: cefTRIAXone SODIUM 2,000 MG in DEXTROSE 5% 50 ML IV SCH ×2 (13:45→22:00)
[2022-09-13] MEDS ORDERED: cefTRIAXone SODIUM 2,000 MG in DEXTROSE 5% 50 ML IV SCH
== END 2022-09-12 17:03 | disposition home or self-care (01) ==
LOC: ED 23:02 → SUATTDRO 09-12 00:43 → INTOOBSV 09-12 00:43 → 3N 09-12 00:43

== ENCOUNTER 2023-01-26 05:58 | Inpatient (IN) ==
[2023-01-26] MEDS ORDERED: KETOROLAC 30 MG/ML VIAL IV STA (06:10)
[2023-01-26] MEDS ORDERED: ONDANSETRON INJ 2 MG/ML 2 ML VIAL IV STA (06:10)
[2023-01-26] MEDS ORDERED: SODIUM CHLORIDE 0.9% 1000ML 1,000 ML IV SCH ×2 (06:15→10:30)
[2023-01-26] MEDS ORDERED: MoRPHine SULFATE 10 MG/ML CARP/VIAL IV STA ×2 (06:28→08:14)
--- NOTE | 2023-01-26 06:31 | Emergency Department Note ---
Impression & Plan Calculus of proximal right ureter, Hydronephrosis of right kidney, Bacteria in urine, Lactic acidosis ED Provider Note Name: TRISHA REED Age: 62 Sex: F Arrives Via: Walk-In Informant: Patient, daughter ED Provider: Jersey Brownlee MD Chief Complaint: Right flank pain. Impression: As per impressions above Medical Decision Making: Pleasant 62-year-old female with a history of ureteral colic arrives for evaluation of worsening right flank pain overnight. On initial evaluation patient is uncomfortable does not appear unwell. She was given IV pain medications and fluids and appeared much better. Ultrasound of the right kidney reveals a proximal 8 mm obstructing stone in the ureter. An unremarkable gallbladder is noted as well. She does not have peritonitis on exam. Her urinalysis is somewhat concerning for some bacteria. Of note on a repeat examination patient is noted to have developed rigors and shaking. At this point she was felt to be septic this occurred at 9:23 AM. Blood cultures, lactic acid and empiric antibiotics were ordered. Patient had already received 1 L normal saline was ordered a second liter. Patient did improve with the fluids and is looking stable. Her lactate did return mildly elevated. She has not been hypotensive. She does not have evidence of septic shock. Hospitalist is aware and they are also in contact with the urologist keeping them up-to-date on findings. Given the patients BMI >30, IBW was used to calculate the 30ml/kg fluid bolus. Prior Medical Record and Triage/Nursing Notes reviewed by Me External chart reviewed by me Differentials:Renal colic, hydronephrosis, renal failure, cholecystitis, intra- abdominal infection otherwise, appendicitis, UTI, pyelonephritis amongst many other pathologies considered Vital Signs: reviewed and remarkable for mildly hypertensive on arrival Interventions: 1 L normal saline bolus IV x2, Rocephin 2 g IV, morphine 6 mg IV, Toradol 30 mg IV, Zofran 4 mg IV Labs:Reviewed and remarkable for elevated lactic acid mild hyperglycemia. Procalcitonin is just at upper level normal. Urinalysis shows 2+ bacteria with no epis Imaging:Ultrasound of the right kidney and gallbladder per radiology moderate hydro with 8 mm proximal obstructing ureteral stone normal gallbladder Consults:Dr. Fuentes of urology aware patient with stone and bacteria plan for antibiotics and hospitalization. Hospitalist aware of findings and have been also in touch with Dr. Fuentes making aware of elevated lactic acid. Plan: Disposition:Hospitalization. Condition: Good History of Present Illness:62-year-old female arrives for evaluation of right flank pain. Patient awoke at 330 this morning with sudden onset right flank p ain. It radiates to the right upper quadrant. Associate with nausea vomiting. She notes she cannot get comfortable. No position makes better. Denies any rashes, leg swelling, urinary burning/frequency, chest pain, shortness of breath, syncope. No medications prior to arrival. She did receive Toradol on arrival without much improvement. This is similar to previous kidney stones and she does note that she had a known stone in the right kidney on previous episode about 6 months ago. Past History:See Below Home Medications:See Below Allergies:metoclopramide Vitals:Blood Pressure: 147/91, Pulse 73, RR 18, T 36.5C, O2 98% on RA Physical Exam: GENERAL: Patient is very uncomfortable appearing and in moderate distress. EYES: No scleral icterus, unremarkable pupils. ENT: Mucous membranes moist RESPIRATORY: No dyspnea. Clear to auscultation and equal bilaterally. No wheeze, no rhonchi. CARDIOVASCULAR: Regular rate and rhythm.No murmurs, rubs, gallops appreciated. GASTROINTESTINAL: Abdomen soft, with some vague right upper quadrant tenderness palpation. BACK: No midline tenderness, moderate right CVA tenderness EXTREMITIES: Normal motion all extremities, no cyanosis, no edema. NEUROLOGIC: Alert and oriented, no focal neurologic deficit SKIN: No rash, no jaundice, no diaphoresis. PSYCH: Appropriate GCS: 15 ED Course: Times/Reassessments: 9:23 AM. Patient evaluated she is now developed rigors shaking and chills. I reviewed my concerns of infected stone and feelings of urology and patient is agreeable to further work-up and hospitalization. Of note at this time septic work-up initiated with blood cultures, lactate, procalcitonin and empiric antibiotics with further IV fluids ordered. Jersey Brownlee MD Past Med/Surg History Medical History Anemia RESOLVED Anterolisthesis of lumbar spine Breast cancer bilateral mastectomy June 2020-[facility] and will be starting chemo, FINISHED CHEMO NOV 02 2020 Cervical radiculopathy Cervical spondylosis Foraminal stenosis of lumbosacral region GERD (gastroesophageal reflux disease) Hypertension Hypothyroidism Kidney stones current , no problems with Lumbar radiculopathy Lumbosacral radiculopathy Lumbosacral spinal stenosis Migraines Neural foraminal stenosis of cervical spine Surgical History H/O foot surgery L Foot MOrtons neuroma H/O lithotripsy H/O mastectomy bilateral History of arthroscopy RT KNEE History of bilateral tubal ligation History of colonoscopy History of dilatation and curettage X2 polyp removal at same time History of removal of Port-a-Cath (05/29/21) Access Port Removal, Left 05/29/2021 Port-A-Cath in place (08/22/20) Insertion of Mediport Left Subclavian with Fluoroscopy 08/22/2020 S/P epidural steroid injection HX Family History Father Diabetes Heart disease Grandfather Heart disease Grandmother Stroke Social History Smoking Status: Never smoker Second Hand Exposure: No; Hx Alcohol Use: Yes Alcohol type: wine and hard liquor Alcohol Intake Frequency: 2-3 x/Week Hx Substance Use: No Preferred Language: Citizen Of [place] Communication Ability: Effective Visual Impairment: No Limitations Hearing Ability: Normal It Programmer Required: No Beliefs That Will Affect Care: None marital status: Current Living Situation: Alone current occupational status: retired Feels Safe at Home: Yes Assistive Devices: None Allergies Allergies Allergy/AdvReac Type Severity Reaction Status Date / Time metoclopramide AdvReac Unknown RASH Verified 01/26/23 10:38 Home Meds Home Medications Medication Instructions Recorded Confirmed levothyroxine 125 mcg tablet 125 mcg PO [id number] 07/13/18 01/26/23 (Synthroid) lactobacillus combination no.4 3 0 mmu cells PO QAM 11/05/18 01/26/23 billion cell capsule (Probiotic) metoprolol tartrate 50 mg tablet 50 mg PO QAM 08/17/20 01/26/23 calcium carbonate 600 mg calcium 600 mg PO DAILY 05/02/21 01/26/23 (1,500 mg) tablet (Calcium) cholecalciferol (vitamin D3) 50 50 mcg PO DAILY 05/02/21 01/26/23 mcg (2,000 unit) capsule pantoprazole 40 mg tablet,delayed 40 mg PO QAM 05/02/21 01/26/23 release (Protonix) cetirizine 10 mg tablet 10 mg PO DAILY PRN allergies 05/18/21 01/26/23 letrozole 2.5 mg tablet 2.5 mg PO QAM 09/04/21 01/26/23 ascorbic acid (vitamin C) 1,000 mg 1 g PO QAM 09/12/22 01/26/23 tablet (Vitamin C) cyanocobalamin (vitamin B-12) 1,000 mcg PO QAM 09/12/22 01/26/23 1,000 mcg tablet (Vitamin B-12) losartan 100 mg tablet 100 mg PO QAM 09/12/22 01/26/23 gabapentin 100 mg capsule 300 mg PO TID 12/05/22 01/26/23 magnesium 250 mg tablet 500 mg PO DAILY 01/26/23 01/26/23 Previous Rx's Medication Instructions Recorded potassium citrate 15 mEq (1,620 15 meq PO BID #180 tabs 11/30/ mg) tablet,extended release rimegepant 75 mg disintegrating 75 mg PO .COMPLEX #15 tabs 11/21/22 tablet (Nurtec ODT) Results & Data (ED) Vital Signs Vital Signs - 24 hr 01/26/23 06:02 01/26/23 06:20 01/26/23 06:35 Temperature 36.5 C Temperature Source Oral Pulse Rate 73 72 Pulse Rate [Finger] 70 Pulse Rate from SpO2 Sensor Pulse Rhythm [Finger] Regular Pulse Strength [Finger] Normal Respiratory Rate 18 24 Respiratory Effort / Characteristics Non-Labored Spontaneous Non-Labored Spontaneous Respiratory Depth Normal Normal Respiratory Pattern Regular Blood Pressure 147/91 H Blood Pressure [Left Arm] 148/100 H Blood Pressure Mean 109 Blood Pressure Mean [Left Arm] 116 Blood Pressure Position Sitting Pulse Oximetry 98 98 Oxygen Delivery Method Room Air Room Air Sepsis Recent Fever Within 48 Hours No Sepsis New/Unexplained Change in Mental Status N/A Sepsis Action Taken by Nursing No Action Required 01/26/23 08:06 01/26/23 06:36 01/26/23 07:00 Temperature Temperature Source Pulse Rate 75 Pulse Rate [Finger] 65 Pulse Rate from SpO2 Sensor 73 Pulse Rhythm [Finger] Pulse Strength [Finger] Respiratory Rate 20 27 H Respiratory Effort / Characteristics Non-Labored Spontaneous Respiratory Depth Normal Respiratory Pattern Blood Pressure 145/87 H Blood Pressure [Left Arm] 145/87 H Blood Pressure Mean 106 Blood Pressure Mean [Left Arm] 106 Blood Pressure Position Pulse Oximetry 98 98 Oxygen Delivery Method Room Air Sepsis Recent Fever Within 48 Hours Sepsis New/Unexplained Change in Mental Status Sepsis Action Taken by Nursing 01/26/23 07:00 01/26/23 08:24 01/26/23 08:24 Temperature Temperature Source Pulse Rate 64 Pulse Rate [Finger] Pulse Rate from SpO2 Sensor 73 64 Pulse Rhythm [Finger] Pulse Strength [Finger] Respiratory Rate 13 Respiratory Effort / Characteristics Respiratory Depth Respiratory Pattern Blood Pressure 149/81 H Blood Pressure [Left Arm] Blood Pressure Mean 103 Blood Pressure Mean [Left Arm] Blood Pressure Position Pulse Oximetry 95 91 Oxygen Delivery Method Sepsis Recent Fever Within 48 Hours Sepsis New/Unexplained Change in Mental Status Sepsis Action Taken by Nursing 01/26/23 08:30 01/26/23 08:30 01/26/23 09:00 Temperature Temperature Source Pulse Rate Pulse Rate [Finger] Pulse Rate from SpO2 Sensor 70 Pulse Rhythm [Finger] Pulse Strength [Finger] Respiratory Rate Respiratory Effort / Characteristics Respiratory Depth Respiratory Pattern Blood Pressure 139/86 135/74 Blood Pressure [Left Arm] Blood Pressure Mean 103 94 Blood Pressure Mean [Left Arm] Blood Pressure Position Pulse Oximetry 92 Oxygen Delivery Method Sepsis Recent Fever Within 48 Hours Sepsis New/Unexplained Change in Mental Status Sepsis Action Taken by Nursing 01/26/23 09:00 01/26/23 09:30 01/26/23 09:31 Temperature Temperature Source Pulse Rate Pulse Rate [Finger] Pulse Rate from SpO2 Sensor 63 95 H 93 H Pulse Rhythm [Finger] Pulse Strength [Finger] Respiratory Rate Respiratory Effort / Characteristics Respiratory Depth Respiratory Pattern Blood Pressure Blood Pressure [Left Arm] Blood Pressure Mean Blood Pressure Mean [Left Arm] Blood Pressure Position Pulse Oximetry 96 Oxygen Delivery Method Sepsis Recent Fever Within 48 Hours Sepsis New/Unexplained Change in Mental Status Sepsis Action Taken by Nursing 01/26/23 09:31 01/26/23 10:00 Temperature Temperature Source Pulse Rate Pulse Rate [Finger] Pulse Rate from SpO2 Sensor 90 Pulse Rhythm [Finger] Pulse Strength [Finger] Respiratory Rate Respiratory Effort / Characteristics Respiratory Depth Respiratory Pattern Blood Pressure 151/98 H Blood Pressure [Left Arm] Blood Pressure Mean 115 Blood Pressure Mean [Left Arm] Blood Pressure Position Pulse Oximetry 95 Oxygen Delivery Method Sepsis Recent Fever Within 48 Hours Sepsis New/Unexplained Change in Mental Status Sepsis Action Taken by Nursing Laboratory Data 01/26/23 06:21 01/26/23 06:21 Lab Results 01/26/23 01/26/23 01/26/23 Range/Units 06:21 06:21 06:21 WBC 9.04 (4.8-10.8) K/ul RBC 4.58 (4.20-5.40) M/uL Hgb 13.7 (12.0-16.0) g/dl Hct 40.1 (37.0-47.0) % MCV 87.6 (80.0-100.0) fL MCH 29.9 (25.0-34.0) pg MCHC 34.2 (32.0-36.0) g/dL RDW Std Deviation 40.0 (36.4-46.3) fL RDW Coeff of Magno 12.5 (11.5-14.5) % Plt Count 311 (130-400) K/uL MPV 10.6 (9.4-12.4) fL Immature Gran % (Auto) 0.4 % Neut % (Auto) 70.1 % Lymph % (Auto) 21.7 % [place] % (Auto) 5.3 % Eos % (Auto) 1.5 % Baso % (Auto) 1.0 % Neut # (Auto) 6.33 (1.40-6.50) K/uL Lymph # (Auto) 1.96 (1.2-3.4) K/uL [place] # (Auto) 0.48 (0.11-0.59) K/uL Eos # (Auto) 0.14 (0-0.50) K/uL Baso # (Auto) 0.09 (0-0.2) K/uL Immature Gran # (Auto) 0.04 (0.01-0.20) K/uL Sodium 139 (136-145) mmol/L Potassium 4.0 (3.5-5.1) mmol/L Chloride 104 (98-107) mmol/L Carbon Dioxide 25 (21-32) mmol/L Anion Gap 10 (3-11) BUN 26 H (6-23) mg/dl Creatinine 1.16 (0.6-1.2) mg/dl Est Cr Clr Drug Dosing 50.8 ml/min Est GFR ( Amer) 57.6 ml/min Est GFR (Non-Af Amer) 49.7 ml/min BUN/Creatinine Ratio 22.4 H (10-20) Glucose 173 H (70-99(Fasting)) mg/dl Lactate (0.4-2.0) mmol/L Calcium 9.6 (8.6-10.3) mg/dl Total Bilirubin 0.4 (0.2-1.0) mg/dl AST 16 (13-39) U/L ALT 17 (7-52) U/L Alkaline Phosphatase 56 (34-104) U/L Total Protein 7.5 (6.0-8.3) gm/dl Albumin 4.6 (3.4-5.0) gm/dl Globulin 2.9 (2.5-4.0) gm/dl Albumin/Globulin Ratio 1.6 (0.9-2) Urine Color Yellow Urine Appearance Cloudy A (Clear) Urine pH 5.0 (4.5-7.5) Ur Specific Dyer 1.021 (1.000-1.030) Urine Protein Trace H (Negative) Urine Glucose (UA) Negative (Negative) Urine Ketones Negative (Negative) Urine Blood Trace H (Negative) Urine Nitrite Positive A (Negative) Urine Bilirubin Negative (Negative) Urine Urobilinogen Negative (Negative) Ur Leukocyte Esterase 2+ H (Negative) Urine WBC (Auto) >30 H (0-5) /hpf Urine RBC (Auto) 0-4 (0-4) /hpf U Hyaline Cast (Auto) 1-5 (0-5) /lpf U Epithel Cells (Auto) 0-5 (0-5) /lpf Urine Bacteria (Auto) 2+ H (Negative) SARS-CoV-2, RNA, NAAT (NEGATIVE) 01/26/23 01/26/23 Range/Units 10:00 10:10 WBC (4.8-10.8) K/ul RBC (4.20-5.40) M/uL Hgb (12.0-16.0) g/dl Hct (37.0-47.0) % MCV (80.0-100.0) fL MCH (25.0-34.0) pg MCHC (32.0-36.0) g/dL RDW Std Deviation (36.4-46.3) fL RDW Coeff of Magno (11.5-14.5) % Plt Count (130-400) K/uL MPV (9.4-12.4) fL Immature Gran % (Auto) % Neut % (Auto) % Lymph % (Auto) % [place] % (Auto) % Eos % (Auto) % Baso % (Auto) % Neut # (Auto) (1.40-6.50) K/uL Lymph # (Auto) (1.2-3.4) K/uL [place] # (Auto) (0.11-0.59) K/uL Eos # (Auto) (0-0.50) K/uL Baso # (Auto) (0-0.2) K/uL Immature Gran # (Auto) (0.01-0.20) K/uL Sodium (136-145) mmol/L Potassium (3.5-5.1) mmol/L Chloride (98-107) mmol/L Carbon Dioxide (21-32) mmol/L Anion Gap (3-11) BUN (6-23) mg/dl Creatinine (0.6-1.2) mg/dl Est Cr Clr Drug Dosing ml/min Est GFR ( Amer) ml/min Est GFR (Non-Af Amer) ml/min BUN/Creatinine Ratio (10-20) Glucose (70-99(Fasting)) mg/dl Lactate 2.3 H* (0.4-2.0) mmol/L Calcium (8.6-10.3) mg/dl Total Bilirubin (0.2-1.0) mg/dl AST (13-39) U/L ALT (7-52) U/L Alkaline Phosphatase (34-104) U/L Total Protein (6.0-8.3) gm/dl Albumin (3.4-5.0) gm/dl Globulin (2.5-4.0) gm/dl Albumin/Globulin Ratio (0.9-2) Urine Color Urine Appearance (Clear) Urine pH (4.5-7.5) Ur Specific Dyer (1.000-1.030) Urine Protein (Negative) Urine Glucose (UA) (Negative) Urine Ketones (Negative) Urine Blood (Negative) Urine Nitrite (Negative) Urine Bilirubin (Negative) Urine Urobilinogen (Negative) Ur Leukocyte Esterase (Negative) Urine WBC (Auto) (0-5) /hpf Urine RBC (Auto) (0-4) /hpf U Hyaline Cast (Auto) (0-5) /lpf U Epithel Cells (Auto) (0-5) /lpf Urine Bacteria (Auto) (Negative) SARS-CoV-2, RNA, NAAT NEGATIVE (NEGATIVE) Administered Medications Sodium Chloride (Nss 1000ml) 1,000 mls @ 100 mls/hr IV .Q10H JULIAN Stop: 01/26/23 20:29 Last Admin: 01/26/23 11:05 Dose: 100 mls/hr Documented By: THAI Discontinued Medications Diatrizoate Meglumine (Diatrizoate Meglumine 30% 100ml Vial) 0 ml INSTIL ONCE ONE Stop: 01/26/23 12:30 Last Admin: 01/26/23 12:30 Dose: 12 ml Documented By: [id number] Sodium Chloride (Nss 1000ml) 1,000 mls @ 999 mls/hr IV .Q1H1M JULIAN Stop: 01/26/23 07:15 Last Infusion: 01/26/23 08:38 Dose: 0 mls/hr Documented By: Admin: 01/26/23 06:31 Dose: 999 mls/hr Documented By: JD Sodium Chloride (Nss 1000ml) 1,000 mls @ 999 mls/hr IV .Q1H1M ONE Stop: 01/26/23 10:23 Last Infusion: 01/26/23 11:11 Dose: 0 mls/hr Documented By: Admin: 01/26/23 10:02 Dose: 999 mls/hr Documented By: ROM Ceftriaxone Sodium (Rocephin) 2,000 mg in 70 mls @ 140 mls/hr IV NOW STA Stop: 01/26/23 09:52 Last Infusion: 01/26/23 11:10 Dose: 0 mls/hr Documented By: Admin: 01/26/23 10:02 Dose: 140 mls/hr Documented By: ROM Ketorolac Tromethamine (Ketorolac 30 Mg/Ml Vial) 30 mg IV NOW STA Stop: 01/26/23 06:11 Last Admin: 01/26/23 06:25 Dose: 30 mg Documented By: JD Meperidine HCl (Meperidine Hcl 25 Mg/Ml Carp/Vial) Confirm Administered Dose 25 mg .ROUTE .STK-MED ONE Stop: 01/26/23 13:32 Last Increment: 01/26/23 13:35 Dose: 12.5 mg Documented By: KELIA Morphine Sulfate (Morphine Sulfate 10 Mg/Ml Carp/Vial) 6 mg IV NOW STA Stop: 01/26/23 06:29 Last Admin: 01/26/23 06:37 Dose: 6 mg Documented By: JD Morphine Sulfate (Morphine Sulfate 10 Mg/Ml Carp/Vial) 6 mg IV NOW STA Stop: 01/26/23 08:15 Last Admin: 01/26/23 08:25 Dose: 6 mg Documented By: ECHO Ondansetron HCl (Ondansetron Inj 2 Mg/Ml 2 Ml Vial) 4 mg IV NOW STA Stop: 01/26/23 06:11 Last Admin: 01/26/23 06:25 Dose: 4 mg Documented By: JD Imaging Data Radiologist's Impression: Gallbladder Ultrasound 01/26/23 06:28 US gallbladder CLINICAL HISTORY: Right flank and RUQ pain TECHNIQUE: Multiple real-time sonographic images of the right upper quadrant were obtained. Comparison: Comparison is made to CT abdomen pelvis 09/11/2022 FINDINGS: The liver is diffusely echogenic in appearance with poor ultrasound penetration, with normal contour, which is consistent with fatty infiltration. Fatty sparing is seen about the gallbladder fossa. No intrahepatic ductal dilatation is seen. Gallbladder polyps are seen measuring up to 2 mm. No wall thickening is seen. A sonographic Tanner's sign was not elicited by the supervisor sawing and assembly. The common duct measures 0.4 cm in diameter at the level of the hepatic artery. The visualized portions of the pancreas appear normal. There is hydronephrosis of the right kidney. A proximal ureteral stone measures 0.8 cm. No ascites or free fluid is seen in Gomez's pouch. IMPRESSION: 1. Obstructive stone in the right proximal ureter measuring 0.8 mm. There is associated hydronephrosis. 2. Hepatic steatosis. 3. Gallbladder polyp. Gallbladder polyps are seen. By SRU criteria, no further evaluation or follow-up is necessary. ACT 112: Negative or not required by law. Electronically signed by: Delmar Singh M.D. 01/26/2023 8:19 AM Discharge Plan Visit Data Chief Complaint: Flank Pain Stated Complaint: FLANK PAIN, VOMITING - KIDNEY STONE ED Provider: Jersey Brownlee Discharge Problem: Calculus of proximal right ureter, Hydronephrosis of right kidney, Bacteria in urine, Lactic acidosis Patient Disposition: Admitted As Inpatient Discharge Instructions Interventions: ED Discharge Assessment Last Done: 01/26/23 11:34
[2023-01-26 06:46] LABS: Basophils # (auto) 0.09 K/uL (0-0.2); Eosinophils # (auto) 0.14 K/uL (0-0.50); Eosinophils % (auto) 1.5 %; Hematocrit (blood only) 40.1 % (37.0-47.0); Hemoglobin 13.7 g/dl (12.0-16.0); Immature Granulocytes # (auto) 0.04 K/uL (0.01-0.20); Immature Granulocytes % (auto) 0.4 %; Lymphocytes # (auto) 1.96 K/uL (1.2-3.4); Lymphocytes % (auto) 21.7 %; Mean Corpuscular Hemoglobin 29.9 pg (25.0-34.0); Mean Corpuscular Hgb Conc 34.2 g/dL (32.0-36.0); Mean Corpuscular Volume 87.6 fL (80.0-100.0); Mean Platelet Volume 10.6 fL (9.4-12.4); Monocytes # (auto) 0.48 K/uL (0.11-0.59); Monocytes % (auto) 5.3 %; Neutrophils # (auto) 6.33 K/uL (1.40-6.50); Neutrophils % (auto) 70.1 %; Platelet Count 311 K/uL (130-400); RDW Coefficient of Variation 12.5 % (11.5-14.5); Red Blood Count 4.58 M/uL (4.20-5.40); White Blood Count 9.04 K/ul (4.8-10.8)
[2023-01-26 07:05] LABS: Albumin Globulin Ratio 1.6 (0.9-2); Albumin Level 4.6 gm/dl (3.4-5.0); BUN Creatinine Ratio 22.4 (10-20); Bilirubin,Total 0.4 mg/dl (0.2-1.0); Calcium 9.6 mg/dl (8.6-10.3); Creatinine Clr Calc Pharmacy 50.8 ml/min; Est GFR (African American) 57.6 ml/min; Est GFR (Non-African American) 49.7 ml/min; Globulin 2.9 gm/dl (2.5-4.0); Total Protein 7.5 gm/dl (6.0-8.3)
--- NOTE | 2023-01-26 08:22 | Ultrasound Report ---
US gallbladder CLINICAL HISTORY: Right flank and RUQ pain TECHNIQUE: Multiple real-time sonographic images of the right upper quadrant were obtained. Comparison: Comparison is made to CT abdomen pelvis 09/11/2022 FINDINGS: The liver is diffusely echogenic in appearance with poor ultrasound penetration, with normal contour, which is consistent with fatty infiltration. Fatty sparing is seen about the gallbladder fossa. No intrahepatic ductal dilatation is seen. Gallbladder polyps are seen measuring up to 2 mm. No wall th ickening is seen. A sonographic Tanner's sign was not elicited by the dogger. The common duct measures 0.4 cm in diameter at the level of the hepatic artery. The visualized portions of the pancr eas appear normal. There is hydronephrosis of the right kidney. A proximal ureteral stone measures 0.8 cm. No ascites or free fluid is seen in Gomez's pouch. IMPRESSION: 1. Obstructive stone in the right proximal ureter measuring 0.8 mm. There is associated hydronephros is. 2. Hepatic steatosis. 3. Gallbladder polyp. Gallbladder polyps are seen. By SRU criteria, no further evaluation or follow- up is necessary. ACT 112: Negative or not required by law. Electronically signed by: Delmar Singh M.D. 01/26/2023 8:19 AM
[2023-01-26 08:38] LABS: Appearance Urine Cloudy (Clear); Bacteria Urine Automated 2+ (Negative); Bilirubin Urine Negative (Negative); Blood Urine Trace (Negative); Color Urine Yellow; Epithelial Cell Urine Auto 0-5 /lpf (0-5); Glucose Urine UA Negative (Negative); Ketones Urine Negative (Negative); Leukocyte Esterase Urine 2+ (Negative); Nitrite Urine Positive (Negative); Protein Urine Trace (Negative); RBC Urine Automated 0-4 /hpf (0-4); Specific Gravity Urine 1.021 (1.000-1.030); Urobilinogen Urine Negative (Negative); WBC Urine Automated >30 /hpf (0-5)
[2023-01-26] MEDS ORDERED: cefTRIAXone SODIUM 2,000 MG/70 ML BAG IV STA (09:23)
[2023-01-26] MEDS ORDERED: SODIUM CHLORIDE 0.9% 1000ML 1,000 ML IV ONE (09:23)
--- NOTE | 2023-01-26 10:14 | History & Physical Report ---
Date of Service January 26, 2023 Assessment & Plan (1) Right nephrolithiasis: Plan: -Admit to med/surge -The patient is currently afebrile ,hemodynamically stable, and stable on RA -Patient developed RUQ abd pain, nausea, vomiting, fever, and chills this am -Found to have an Obstructive stone in the right proximal ureter measuring 0.8 mm with associated right hydronephrosis -S/P 2gm Ceftriaxone, 2L NSS bolus, 12 mg IV morphine, 10 mg IV toradol, and 4 mg IV zofran in the ED -Initial lactate elevated at 2.3, the patient is non-toxic and currently hemodynamically stable -Will continue 2gm IV ceftriaxone q24H as her previous urine cultures have grown pansensitive E. Coli -Continue IV fluids while NPO with NSS at 100 mL/hr -Pain control with PO tylenol for mil-mod pain and IV morphine for severe pain -Will start PO flomax daily -Urology consulted, Spoke with Dr. Fuentes, appreciate his quick response, we will keep NPO except meds for now, he is working to coordinate an OR spot for the patient today for STENT placement -Will monitor for repeat lactate -Blood and urine cultures obtained in the ED, follow and tailor abx to their results -BL SCD's for DVT PPX until she is out of the OR -AM CBC, BMP (2) Foraminal stenosis of lumbosacral region: Plan: -Continue gabapentin (3) Breast cancer: Plan: -Continue Letrozole (4) Hypertension: Plan: -Hold Losartan -Will give her daily dose of 50 mg PO Metoprolol tartrate now (5) GERD (gastroesophageal reflux disease): Plan: -Likely has some component of gastritis and esophagitis from vomiting -Will start BID famotidine and pantoprazole now -If no improvement can consider further imaging of her abd/pelvis (6) Hypothyroidism: Plan: -Continue levothyroxine (7) Sleep apnea: Plan: HS CPAP ordered Plan The patient was discussed with Dr. Love at the time of the admission History of Present Illness Chief Complaint: Flank pain Primary Care Provider: Juanita Dooley MD Cassandra is a 62 year old female with a PMH significant for lumbar stenosis, HTN, GERD, hypothyroidism, ARIELLE, migraines, previous nephrolithiasis, and breast cancer S/P BL mastectomy, currently on letrozole who presented to the [facility] ED on 01/26/23 with a chief complaint of right flank pain. In the ED the patient was initially found to be afebrile, hemodynamically stable, and stable on RA. Labs were remarkable for a CBC WNL, stable Cr at 1.16, electrolytes and LFT's WNL, glucose of 173, UA suggestive of UTI. Gallbladder US was read as "1. Obstructive stone in the right proximal ureter measuring 0.8 mm. There is associated hydronephrosis. 2. Hepatic steatosis. 3. Gallbladder polyp. Gallbladder polyps are seen. By SRU criteria, no further evaluation or follow-up is necessary.". The ED spoke to Urology who recommended admitting the patient for IV antibiotics and further monitoring prior to taking her to the OR for stent placement. Prior to admission the patient was given 1L NSS bolus, 30 mg IV toradol, 12 total mg IV morphine, 4 mg IV zofran, and 2gm IV Ceftriaxone. At the time of the exam the patient was lying in bed in no acute distress. She was initially on 3L NC at the beginning of the exam. On inspection the pulse oximetry probe was on her right index finer, her fingernails are painted. She denies SOB, is not a tobacco use, and does not have a history of pulmonary disease. She states that she has a history of kidney stones in the past that have required lithotripsy. She started to develop RUQ abdominal pain which radiates to her back at approximately 0330 this am. She denies the pain radiating anywhere else. She started to develop, fever, chills, nausea and multiple episodes of non-bloody emesis. She has had a total of 6 episodes of vomiting and is now having some epigastric pain. She has a history of severe gastritis and esophagitis, she states this feels similar to her chronic gastric pain. She denies any other abd pain, dysuria, hematuria, melena, diarrhea, LE swelling, and recent trauma. She last ate at approximately 2130 last night. We discussed code status, she wishes to be a full code and for her daughters to make medial decisions for her if she cannot make them herself. Please refer to Dr. Love's attestation for any changes to the treatment plan Allergies Allergy/AdvReac Type Severity Reaction Status Date / Time metoclopramide AdvReac Unknown RASH Verified 01/26/23 10:38 Home Medications Medication Instructions Recorded Confirmed Type levothyroxine 125 mcg tablet 125 mcg PO 6XWK 07/13/18 01/26/23 History (Synthroid) lactobacillus combination no.4 3 0 mmu cells PO QAM 11/05/18 01/26/23 History billion cell capsule (Probiotic) potassium citrate 15 mEq (1,620 15 meq PO BID #180 tabs 11/30/19 01/26/23 Rx mg) tablet,extended release metoprolol tartrate 50 mg tablet 50 mg PO QAM 08/17/20 01/26/23 History calcium carbonate 600 mg calcium 600 mg PO DAILY 05/02/21 01/26/23 History (1,500 mg) tablet (Calcium) cholecalciferol (vitamin D3) 50 50 mcg PO DAILY 05/02/21 01/26/23 History mcg (2,000 unit) capsule pantoprazole 40 mg tablet,delayed 40 mg PO QAM 05/02/21 01/26/23 History release (Protonix) cetirizine 10 mg tablet 10 mg PO DAILY PRN allergies 05/18/21 01/26/23 History letrozole 2.5 mg tablet 2.5 mg PO QAM 09/04/21 01/26/23 History ascorbic acid (vitamin C) 1,000 mg 1 g PO QAM 09/12/22 01/26/23 History tablet (Vitamin C) cyanocobalamin (vitamin B-12) 1,000 mcg PO QAM 09/12/22 01/26/23 History 1,000 mcg tablet (Vitamin B-12) losartan 100 mg tablet 100 mg PO QAM 09/12/22 01/26/23 History rimegepant 75 mg disintegrating 75 mg PO .COMPLEX #15 tabs 11/21/22 01/26/23 Rx tablet (Nurtec ODT) gabapentin 100 mg capsule 300 mg PO TID 12/05/22 01/26/23 History magnesium 250 mg tablet 500 mg PO DAILY 01/26/23 01/26/23 History Past Med/Surg History Medical History Anemia RESOLVED Anterolisthesis of lumbar spine Breast cancer bilateral mastectomy June 2020-[facility] and will be starting chemo, FINISHED CHEMO NOV 02 2020 Cervical radiculopathy Cervical spondylosis Foraminal stenosis of lumbosacral region GERD (gastroesophageal reflux disease) Hypertension Hypothyroidism Kidney stones current , no problems with Lumbar radiculopathy Lumbosacral radiculopathy Lumbosacral spinal stenosis Migraines Neural foraminal stenosis of cervical spine Surgical History H/O foot surgery L Foot MOrtons neuroma H/O lithotripsy H/O mastectomy bilateral History of arthroscopy RT KNEE History of bilateral tubal ligation History of colonoscopy History of dilatation and curettage X2 polyp removal at same time History of removal of Port-a-Cath (05/29/21) Access Port Removal, Left 05/29/2021 Port-A-Cath in place (08/22/20) Insertion of Mediport Left Subclavian with Fluoroscopy 08/22/2020 S/P epidural steroid injection HX Family History Father Diabetes Heart disease Grandfather Heart disease Grandmother Stroke Social History Smoking Status: Never smoker Second Hand Exposure: No; Hx Alcohol Use: Yes Alcohol type: wine and hard liquor Alcohol Intake Frequency: 2-3 x/Week Hx Substance Use: No Preferred Language: Portuguese Communication Ability: Effective Visual Impairment: No Limitations Hearing Ability: Normal 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 All systems have been reviewed and are otherwise negative. Physical Exam Physical Exam: Physical Exam: General: In no acute distress, stated age, well-nourished, good hygiene, non- toxic appearing HEENT: Normocephalic, atraumatic, no scleral icterus, pupils around round, symmetrical, and reactive to light, moist mucus membranes, trachea midline, no thyromegaly Chest/Pulm: No respiratory distress, symmetrical chest expansion, clear breath sounds throughout Cardiac: RRR, no murmurs noted Abdomen: Negative for ascites and bruising, normoactive bowel sounds, soft, tender to palpation in the epigastric region and RUQ, no hepatomegaly or rebound tenderness : + CVA tenderness on the right side Musculoskeletal: Symmetrical and without signs of acute trauma, upper and lower extremities with full ROM, no atrophy, spasticity, or flaccidity Extremities: Radial, dorsalis pedis, and posterior tibial pulses are intact and symmetrical, no edema noted in the BL LE's Skin: Warm, dry, no rashes , lesions, or scars noted Neuro: Alert and oriented to person, place, month, year, and president, no focal defects, no tremors noted Psych: No acute distress, calm and cooperative during the exam Results & Data Results & Data Vital Signs (Past 12 Hours) Vital Signs Temp Pulse Pulse Resp BP BP Pulse Ox 01/26/23 08:06 65 20 145/87 H 98 01/26/23 06:35 72 01/26/23 06:20 70 24 148/100 H 98 01/26/23 06:02 36.5 C 73 18 147/91 H 98 O2 Del Method 01/26/23 08:06 Room Air 01/26/23 06:35 01/26/23 06:20 Room Air 01/26/23 06:02 Room Air Laboratory Results Abnormal lab results 01/26/23 01/26/23 01/26/23 Range/Units 06:21 06:21 10:00 BUN 26 H (6-23) mg/dl BUN/Creatinine Ratio 22.4 H (10-20) Glucose 173 H (70-99(Fasting)) mg/dl Lactate 2.3 H* (0.4-2.0) mmol/L Urine Appearance Cloudy A (Clear) Urine Protein Trace H (Negative) Urine Blood Trace H (Negative) Urine Nitrite Positive A (Negative) Ur Leukocyte Esterase 2+ H (Negative) Urine WBC (Auto) >30 H (0-5) /hpf Urine Bacteria (Auto) 2+ H (Negative) Diagnostic Findings Gallbladder Ultrasound 01/26/23 06:28 US gallbladder CLINICAL HISTORY: Right flank and RUQ pain TECHNIQUE: Multiple real-time sonographic images of the right upper quadrant were obtained. Comparison: Comparison is made to CT abdomen pelvis 09/11/2022 FINDINGS: The liver is diffusely echogenic in appearance with poor ultrasound penetration, with normal contour, which is consistent with fatty infiltration. Fatty sparing is seen about the gallbladder fossa. No intrahepatic ductal dilatation is seen. Gallbladder polyps are seen measuring up to 2 mm. No wall thickening is seen. A sonographic Tanner's sign was not elicited by the business english instructor. The common duct measures 0.4 cm in diameter at the level of the hepatic artery. The visualized portions of the pancreas appear normal. There is hydronephrosis of the right kidney. A proximal ureteral stone measures 0.8 cm. No ascites or free fluid is seen in Gomez's pouch. IMPRESSION: 1. Obstructive stone in the right proximal ureter measuring 0.8 mm. There is associated hydronephrosis. 2. Hepatic steatosis. 3. Gallbladder polyp. Gallbladder polyps are seen. By SRU criteria, no further evaluation or follow-up is necessary. ACT 112: Negative or not required by law. Electronically signed by: Delmar Singh M.D. 01/26/2023 8:19 AM ECG Additional Comments: Will obtain ECG on admission Code Status & VTE Plan Code Status FUll code Supervising Physician Co-Signing Physician Notes I personally saw and examined the patient. I verified all medina points and agree with Trevor Tan PA-C with the following exceptions and/or additions: 62 year old male presents to the ER with right sided flank pain and dysuria. O/E A&Ox3, not septic appearing, HS RRR no murmurs, Chest CTAB, Abdo right upper quadrant tenderness, right CVA tenderness A/P Right infected obstructing ureterolithiasis - urology to take for stent insertion, ceftriaxone, follow up urine/blood cultures. PG Care Time/CCT Total # of Minutes Spent Total Time Spent with Patient: Total time spent is greater than 50% in coordination of care (as documented) at patient's floor/unit and/or counseling patient: Coding [place] [address] INT INP/OBS CARE 2/55MIN Patient Type Established Medical Decision Making Moderate Complexity Diagnoses Right nephrolithiasis N20.0 Foraminal stenosis of lumbosacral region M48.07 Breast cancer C50.911 Breast location: unspecified site of breast Estrogen receptor status: unspecified Laterality: right Patient sex: female Hypertension I10 GERD (gastroesophageal reflux disease) K21.9 Hypothyroidism E03.9 Sleep apnea G47.30 (3) Breast cancer Breast location: unspecified site of breast Estrogen receptor status: unspecified Laterality: right Patient sex: female Qualified Code(s): C50.911 - Malignant neoplasm of unspecified site of right female breast
[2023-01-26] MEDS ORDERED: TAMSULOSIN HCL 0.4 MG CAP PO SCH (10:30)
[2023-01-26] MEDS ORDERED: MoRPHine SULFATE 2 MG/ML CARP IV PRN ×3 (10:39→11:51)
[2023-01-26] MEDS ORDERED: ACETAMINOPHEN 325 MG TAB PO PRN ×2 (10:39→11:20)
[2023-01-26] MEDS ORDERED: FAMOTIDINE 20 MG in SYRINGE 3 ML IV SCH (10:45)
[2023-01-26] MEDS ORDERED: PANTOprazole 40 MG in SYRINGE 0 ML IV SCH (10:45)
[2023-01-26] MEDS ORDERED: FAMOTIDINE 20 MG in SYRINGE 3 ML IV ONE (11:02)
[2023-01-26] MEDS ORDERED: METOPROLOL SUCC 50MG EXT REL TAB PO STA (11:02)
[2023-01-26] MEDS ORDERED: PANTOprazole 40 MG in SYRINGE 0 ML IV ONE (11:02)
[2023-01-26] MEDS ORDERED: TAMSULOSIN HCL 0.4 MG CAP PO ONE (11:02)
[2023-01-26] MEDS ORDERED: METOPROLOL TARTRATE 50 MG TAB PO STA (11:06)
[2023-01-26] MEDS ORDERED: METOPROLOL TARTRATE 50 MG TAB PO SCH (11:20)
[2023-01-26] MEDS ORDERED: fentaNYL citrate PF 100 MCG/2 ML VIAL IV PRN (11:27)
[2023-01-26] MEDS ORDERED: ONDANSETRON INJ 2 MG/ML 2 ML VIAL IV PRN (11:27)
[2023-01-26] MEDS ORDERED: ePHEDrine sulfate 50 MG/ML AMP IV PRN (11:27)
[2023-01-26] MEDS ORDERED: ATROPINE SULFATE 0.1 MG/ML 10ML SYR IV PRN (11:27)
--- NOTE | 2023-01-26 11:27 | Anesthesiology Consultation ---
Date of Service January 26, 2023 Assessment & Plan Chart Review Chart Review: pharmacy order entry technician initiated History Surgery Operation Date: 01/26/23 11:25 Proposed Procedures p Cystoscopy - Migue Fuentes DO s Ureteral Stent Insertion/Removal, stone basket extraction, right ur eteroscopy(Right) - Migue Fuentes DO Height/Weight Height: 5 ft 4 in Weight: 82.3 kg Allergies Allergy/AdvReac Type Severity Reaction Status Date / Time metoclopramide AdvReac Unknown RASH Verified 01/26/23 10:38 Medications Home Medications Medication Instructions Recorded Confirmed Last Taken levothyroxine 125 mcg tablet 125 mcg PO 6XWK 07/13/18 01/26/23 09/11/22 (Synthroid) lactobacillus combination no.4 3 0 mmu cells PO QAM 11/05/18 01/26/23 09/11/22 billion cell capsule (Probiotic) potassium citrate 15 mEq (1,620 15 meq PO BID #180 tabs 11/30/19 01/26/2309/11 mg) tablet,extended release metoprolol tartrate 50 mg tablet 50 mg PO QAM 08/17/20 01/26/23 09/11/22 calcium carbonate 600 mg calcium 600 mg PO DAILY 05/02/21 01/26/23 09/11/22 (1,500 mg) tablet (Calcium) cholecalciferol (vitamin D3) 50 50 mcg PO DAILY 05/02/21 01/26/23 09/11/22 mcg (2,000 unit) capsule pantoprazole 40 mg tablet,delayed 40 mg PO QAM 05/02/21 01/26/23 09/11/22 release (Protonix) cetirizine 10 mg tablet 10 mg PO DAILY PRN allergies 05/18/21 01/26/23 05/28/21 letrozole 2.5 mg tablet 2.5 mg PO QAM 09/04/21 01/26/23 09/11/22 ascorbic acid (vitamin C) 1,000 mg 1 g PO QAM 09/12/22 01/26/23 09/11/22 tablet (Vitamin C) cyanocobalamin (vitamin B-12) 1,000 mcg PO QAM 09/12/22 01/26/23 09/11/22 1,000 mcg tablet (Vitamin B-12) losartan 100 mg tablet 100 mg PO QAM 09/12/22 01/26/23 09/11/22 rimegepant 75 mg disintegrating 75 mg PO .COMPLEX #15 tabs 11/21/22 01/26/23 Unknown tablet (Nurtec ODT) gabapentin 100 mg capsule 300 mg PO TID 12/05/22 01/26/23 Unknown magnesium 250 mg tablet 500 mg PO DAILY 01/26/23 01/26/23 Unknown Active Medications Generic Name Dose Route Start Last Admin Trade Name Janiya PRN Reason Stop Dose Admin Sodium Chloride 1,000 mls @ 100 mls/hr 01/26/23 10:30 01/26/23 11:05 Nss 1000ml IV 01/26/23 20:29 100 mls/hr .Q10H JULIAN Administration Past Medical History Medical History Anemia RESOLVED Anterolisthesis of lumbar spine Breast cancer bilateral mastectomy June 2020-[facility] and will be starting chemo, FINISHED CHEMO NOV 02 2020 Cervical radiculopathy Cervical spondylosis Foraminal stenosis of lumbosacral region GERD (gastroesophageal reflux disease) Hypertension Hypothyroidism Kidney stones current , no problems with Lumbar radiculopathy Lumbosacral radiculopathy Lumbosacral spinal stenosis Migraines Neural foraminal stenosis of cervical spine Past Family History Family History Father Diabetes Heart disease Grandfather Heart disease Grandmother Stroke Past Surgical History Surgical History H/O foot surgery L Foot MOrtons neuroma H/O lithotripsy H/O mastectomy bilateral History of arthroscopy RT KNEE History of bilateral tubal ligation History of colonoscopy History of dilatation and curettage X2 polyp removal at same time History of removal of Port-a-Cath (05/29/21) Access Port Removal, Left 05/29/2021 Port-A-Cath in place (08/22/20) Insertion of Mediport Left Subclavian with Fluoroscopy 08/22/2020 S/P epidural steroid injection HX Social History Smoking Status: Never smoker Hx Alcohol Use: Yes Alcohol type: wine and hard liquor alcohol intake frequency: holidays/special occasions only Hx Substance Use: No substance use type: does not use Physical Exam Vital Signs Last Vital Signs Temp 98.8 F 01/26/23 10:41 Pulse 69 01/26/23 10:41 Resp 16 01/26/23 10:41 BP 176/100 H 01/26/23 10:41 Pulse Ox 92 01/26/23 10:41 O2 Del Method Room Air 01/26/23 10:41 Testing Laboratory Results 01/26/23 06:21 01/26/23 06:21 Urine Color Yellow 01/26/23 06:21 Urine Appearance Cloudy (Clear) A 01/26/23 06:21 Urine pH 5.0 (4.5-7.5) 01/26/23 06:21 Ur Specific [place] 1.021 (1.000-1.030) 01/26/23 06:21 Urine Protein Trace (Negative) H 01/26/23 06:21 Urine Glucose (UA) Negative (Negative) 01/26/23 06:21 Urine Ketones Negative (Negative) 01/26/23 06:21 Urine Nitrite Positive (Negative) A 01/26/23 06:21 Ur Leukocyte Esterase 2+ (Negative) H 01/26/23 06:21 Urine WBC (Auto) >30 /hpf (0-5) H 01/26/23 06:21 Urine RBC (Auto) 0-4 /hpf (0-4) 01/26/23 06:21 U Hyaline Cast (Auto) 1-5 /lpf (0-5) 01/26/23 06:21 U Epithel Cells (Auto) 0-5 /lpf (0-5) 01/26/23 06:21 Urine Bacteria (Auto) 2+ (Negative) H 01/26/23 06:21 Electrocardiogram Date: 01/26/23 Sinus rhythm with Premature supraventricular complexes, rate 98 bpm Possible Left atrial enlargement Inferior infarct , age undetermined Possible Anterior infarct , age undetermined Abnormal ECG When compared with ECG of 17-AUG-2020 14:41, Significant changes have occurred Echocardiogram Date: 08/16/20 LV systolic function is normal No regional wall motion abnormalities noted Mild concentric LVH EF 60-65% No significant valvular pathology Compared with study dated 02/25/2014, no significant change
--- NOTE | 2023-01-26 11:36 | Urology Consultation ---
Date of Consultation January 26, 2023 Assessment & Plan (1) Right nephrolithiasis: (2) Acute UTI: (3) Kidney stones: (4) Renal colic on right side: (5) Hydronephrosis of right kidney: (6) Daytime somnolence: (7) Hypertension: Plan Patient with approximately 8 mm proximal stone found on ultrasound of the right upper quadrant during work-up for possible gallbladder disease. Patient has complex history of stone disease. Had passed a stone in the fall on the same side. At that time had the stone in the right renal pelvis that is currently passing. Patient has previously had ESWL had tolerated without major issue in the past. No considerable episodes of bleeding. Is having some severe episodes of pain in the right flank going down into the groin in waves severe nature with major bother. Discussed options for conservative measure and maximum expulsion medical therapy and symptom controlled. Discussed ESWL. Discussed Ureteroscopy with extraction and/or laser lithotripsy. Risks and benefits were discussed. Stone free rates were also discussed as well as possibility of multiple procedures. Ureteral stents were discussed as well as post-operative issues and pain management. All questions were answered. Patient's vitals are mild hypertension. No considerable fever or hypotension or tachycardia. Patient's COVID test was negative. White count is 9.04. Creatinine is 1.16. Patient's imaging was reviewed interpreted by myself. Patient's upper quadrant ultrasound was reviewed as well as the patient's imaging from the fall. Patient does have a considerable stone on the right side that appears to be in the proximal ureter with hydronephrosis. Has considered different options. Did discuss possible timing of procedure versus intervention. Patient is continuing to have bouts of pain. After extensive conversation and discussion of different options as well as review of the patient's complex medical and surgical history as well as family history elected to move forward with intervention. Risks and benefits discussed at length for procedure. These include bleeding, infection, injury to surrounding tissues or organs, and risks associated with anesthesia. Patient states understanding and agrees to proceed. Will sign consent and proceed. Plan for cystoscopy with right stent and possible stone treatment. History of Present Illness Attending Physician: Shree Love MD History of Present Illness New consultation for patient with stone, discomfort, obstruction, and ill feelings. Patient developed sudden onset of pain into flank going down and radiating into groin and back in waves comes and goes. Can be severe at times. Discussed and reviewed patient's family history for any history of stone disease. Patient has considerable history with stones. Has previously had to have intervention. Has had ESWL in the past. Patient passed a stone in the fall. Appeared to be in the bladder with mild hydronephrosis and signs of recently passed stone on the same side. Also, discussed patient's medical surgery history especially related to any history of urinary issues or stone disease. Patient was admitted and is undergoing observation. Allergies Allergy/AdvReac Type Severity Reaction Status Date / Time metoclopramide AdvReac Unknown RASH Verified 01/26/23 10:38 Home Medications Medication Instructions Recorded Confirmed Type levothyroxine 125 mcg tablet 125 mcg PO 6XWK 07/13/18 01/26/23 History (Synthroid) lactobacillus combination no.4 3 0 mmu cells PO QAM 11/05/18 01/26/23 History billion cell capsule (Probiotic) potassium citrate 15 mEq (1,620 15 meq PO BID #180 tabs 11/30/19 01/26/23 Rx mg) tablet,extended release metoprolol tartrate 50 mg tablet 50 mg PO QAM 08/17/20 01/26/23 History calcium carbonate 600 mg calcium 600 mg PO DAILY 05/02/21 01/26/23 History (1,500 mg) tablet (Calcium) cholecalciferol (vitamin D3) 50 50 mcg PO DAILY 05/02/21 01/26/23 History mcg (2,000 unit) capsule pantoprazole 40 mg tablet,delayed 40 mg PO QAM 05/02/21 01/26/23 History release (Protonix) cetirizine 10 mg tablet 10 mg PO DAILY PRN allergies 05/18/21 01/26/23 History letrozole 2.5 mg tablet 2.5 mg PO QAM 09/04/21 01/26/23 History ascorbic acid (vitamin C) 1,000 mg 1 g PO QAM 09/12/22 01/26/23 History tablet (Vitamin C) cyanocobalamin (vitamin B-12) 1,000 mcg PO QAM 09/12/22 01/26/23 History 1,000 mcg tablet (Vitamin B-12) losartan 100 mg tablet 100 mg PO QAM 09/12/22 01/26/23 History rimegepant 75 mg disintegrating 75 mg PO .COMPLEX #15 tabs 11/21/22 01/26/23 Rx tablet (Nurtec ODT) gabapentin 100 mg capsule 300 mg PO TID 12/05/22 01/26/23 History magnesium 250 mg tablet 500 mg PO DAILY 01/26/23 01/26/23 History Patient History Medical History Anemia RESOLVED Anterolisthesis of lumbar spine Breast cancer bilateral mastectomy June 2020-[facility] and will be starting chemo, FINISHED CHEMO NOV 02 2020 Cervical radiculopathy Cervical spondylosis Foraminal stenosis of lumbosacral region GERD (gastroesophageal reflux disease) Hypertension Hypothyroidism Kidney stones current , no problems with Lumbar radiculopathy Lumbosacral radiculopathy Lumbosacral spinal stenosis Migraines Neural foraminal stenosis of cervical spine Surgical History H/O foot surgery L Foot MOrtons neuroma H/O lithotripsy H/O mastectomy bilateral History of arthroscopy RT KNEE History of bilateral tubal ligation History of colonoscopy History of dilatation and curettage X2 polyp removal at same time History of removal of Port-a-Cath (05/29/21) Access Port Removal, Left 05/29/2021 Port-A-Cath in place (08/22/20) Insertion of Mediport Left Subclavian with Fluoroscopy 08/22/2020 S/P epidural steroid injection HX Family History Father Diabetes Heart disease Grandfather Heart disease Grandmother Stroke Social History Smoking Status: Never smoker Second Hand Exposure: No; Hx Alcohol Use: Yes Alcohol type: wine and hard liquor Alcohol Intake Frequency: 2-3 x/Week Hx Substance Use: No Preferred Language: Citizen Of [place] Communication Ability: Effective Visual Impairment: No Limitations Hearing Ability: Normal Cast Iron 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 Patient is well nourished and well kept. HEENT: Normocephalic Atraumatic. Inspection normal. Cranial Nerves 2-12 Grossly intact. Nares are clear. Neck is supple. Normal inspection of face. Normal inspection of neck. Neurologic: No deficits on inspection. Baseline for motor function and sensory. Psychologic: Normal affect. Respiratory: Nonlabored. No use of accessory muscles. No tachypnea or dyspnea. Cardiovascular: No tachycardia Skin: [place] and Dry. No rashes or visible lesions. Extremities: Moving without issues. No motor deficits on inspection Lymphatics: No edema Abdomen: Soft Non-distended. No acites. No rebound or guarding. Results & Data Vital Signs (Past 12 Hours) Vital Signs Temp Pulse Pulse Resp BP BP Pulse Ox 01/26/23 11:00 99 01/26/23 10:44 94 01/26/23 10:44 173/88 H 01/26/23 10:30 92 01/26/23 10:00 95 01/26/23 09:31 151/98 H 01/26/23 09:00 96 01/26/23 09:00 135/74 01/26/23 08:30 92 01/26/23 08:30 139/86 01/26/23 08:24 91 01/26/23 08:24 149/81 H 01/26/23 07:00 64 13 95 01/26/23 07:00 145/87 H 01/26/23 06:36 75 27 H 98 01/26/23 10:41 37.1 C 69 16 176/100 H 92 01/26/23 08:06 65 20 145/87 H 98 01/26/23 06:35 72 01/26/23 06:20 70 24 148/100 H 98 01/26/23 06:02 36.5 C 73 18 147/91 H 98 O2 Del Method 01/26/23 11:00 Room Air 01/26/23 10:44 01/26/23 10:44 01/26/23 10:30 01/26/23 10:00 01/26/23 09:31 01/26/23 09:00 01/26/23 09:00 01/26/23 08:30 01/26/23 08:30 01/26/23 08:24 01/26/23 08:24 01/26/23 07:00 01/26/23 07:00 01/26/23 06:36 01/26/23 10:41 Room Air 01/26/23 08:06 Room Air 01/26/23 06:35 01/26/23 06:20 Room Air 01/26/23 06:02 Room Air PG Care Time/CCT Total # of Minutes Spent Total Time Spent with Patient: Total time spent is greater than 50% in coordination of care (as documented) at patient's floor/unit and/or counseling patient: Coding Level of Care Code 04628 IN/OBS CONSULT LVL 5,80M Diagnoses Right nephrolithiasis N20.0 Acute UTI N39.0 Kidney stones N20.0 Renal colic on right side N23 Hydronephrosis of right kidney N13.30 Daytime somnolence R40.0 Hypertension I10
[2023-01-26] MEDS ORDERED: MIDAZOLAM HCL 1 MG/ML 2ML VIAL ONE (11:39)
[2023-01-26] MEDS ORDERED: LIDOCAINE 2% MPF LOCAL 5 ML VIAL ONE (11:39)
[2023-01-26] MEDS ORDERED: fentaNYL citrate PF 100 MCG/2 ML VIAL ONE (11:39)
[2023-01-26] MEDS ORDERED: PROPOFOL IV EMULSION 10 MG/ML 20 ML VIAL IV ONE ×2 (11:39→12:29)
[2023-01-26] MEDS ORDERED: DEXAMETHASONE SOD INJ 4 MG/ML VIAL ONE (11:40)
[2023-01-26] MEDS ORDERED: ONDANSETRON INJ 2 MG/ML 2 ML VIAL ONE (11:40)
[2023-01-26] MEDS ORDERED: DIATRIZOATE MEGLUMINE 30% 100ML VIAL INSTIL ONE (12:29)
--- NOTE | 2023-01-26 12:32 | Operative Report ---
PG Post Operative Report Pre & Post Diagnosis Operation Date: 01/26/23 11:25 Pre-Op Diagnosis: Right nephrolithiasis Post-Op Diagnosis: Right nephrolithiasis I identified the patient and participated in the time-out.: Yes Procedure Operation Date: 01/26/23 11:25 Actual Procedures p Cystoscopy with Right Ureteral Stent Insertion, right ureteral dilation, right retrograde pyelogram, and right ureteroscopy(Right) - Migue Fuentes DO Surgeon Migue Fuentes, II, DO Decating Machine Operator None Estimated Blood Loss 1 Findings Consistent with Post-Op Diagnosis Wire unable to bypass stone. Rigid ureteroscope was taken to the site of the stone and stricture discovered. The stone was displaced back to the renal pelvis. The stricture was gently dilated and a wire was then passed. Specimens None Drains 7 x 24 Right Anesthesia Type General Complications none Disposition Disposition: Recovery Room Indications Patient with bothersome stones. Risks and benefits discussed at length. Description of Procedure Patient was consented and brought back to the operating room. Patient was placed under anesthesia in the supine position and moved to the dorsal lithotomy position. Patient was prepped and draped in the regular sterile fashion. A time out was completed. A 30degree Cystoscope was placed into the bladder and the entire bladder was examined. The UO's were identified. The UO was cannulized with a catheter and a retrograde pyelogram was completed. A wire was then placed. The wire had some difficulty going into the renal pelvis likely being obstructed by the stone. The wire was left in place The Rigid ureteroscope was taken into the ureter. The proximal ureter had an area of narrowing. Past this it appeared that the stone was identified. The stone was displaced back to the renal pelvis and the area of narrowing was gently dilated. The scope was then advanced with the plan to attempt to grab the stone with the basket however the stone appeared to have been displaced down into the lower pole and was unable to be grasped. The wire remained in place throughout the process and was located well within the renal pelvis. The entire area was once again examined. No residual large fragments or areas of concern were noted. The area of dilation appeared to be irritated and inflamed but no masses or tumors.. The scope was slowly removed with the wire left in place. Contrast was placed through the scope for a pyelogram to assist in stent placement. The entire ureter was examined as the scope was slowly removed. No obstructions or other areas of concern were noted. With the wire in place, a 7 Fr Double J stent was placed. It was confirmed with fluoroscopy. With the stent in place, the bladder was emptied. The scope was removed. The patient was cleaned, aroused from anesthesia, and transferred to the pacu in stable condition having tolerated the procedure well with no c omplications. I was present and participated in all aspects of the procedure. The patient will be monitored in the PACU until transferred. We will plan to maintain the stent for approximately a week. We will likely need to set up for stone treatment. Appear to be in the lower pole of the renal pelvis at this point. We will plan to get KUB imaging in the next 2 to 3 days to confirm the location of the stone and then plan to move forward with likely intervention based on this. We will maintain stent until approximately a week after completion of ESWL I attest to the content of the Intraoperative Record and any orders documented therein. Any exceptions are noted below.
--- NOTE | 2023-01-26 12:40 | Fluoroscopy Report ---
FL KUB CLINICAL HISTORY: RT SIDE TECHNIQUE: 2 views were obtained with the C-arm in the OR with the above procedure. Total fluoroscopy time was 23.1 seconds. Radiation dose was 6.85 mGy. Comparison: Comparison is made to CT abdomen pelvis 09/11/2022 FINDINGS/IMPRESSION: Intraoperative images were obtained of right lithotripsy and stent placement Please correlate with intraoperative fluoroscopy and operative report. ACT 112: Negative or not required by law. Electronically signed by: Delmar Singh M.D. 01/26/2023 12:39 PM
--- NOTE | 2023-01-26 12:56 | Anesthesiology Progress Note ---
Date of Service January 26, 2023 Anesthesia Post Procedure Vital Signs Vital Signs: Temp Pulse Pulse Pulse Resp BP BP 01/26/23 12:45 86 20 119/79 01/26/23 12:37 98.1 F 89 16 109/62 01/26/23 11:00 01/26/23 10:44 01/26/23 10:44 173/88 H 01/26/23 10:30 01/26/23 10:00 01/26/23 09:31 151/98 H 01/26/23 09:00 01/26/23 09:00 135/74 01/26/23 08:30 01/26/23 08:30 139/86 01/26/23 08:24 01/26/23 08:24 149/81 H 01/26/23 07:00 64 13 01/26/23 07:00 145/87 H 01/26/23 06:36 75 27 H 01/26/23 10:41 98.8 F 69 16 176/100 H 01/26/23 08:06 65 20 145/87 H 01/26/23 06:35 72 01/26/23 06:20 70 24 148/100 H 01/26/23 06:02 97.7 F 73 18 147/91 H Pulse Ox O2 Del Method O2 Flow Rate 01/26/23 12:45 99 Oxymask 9 01/26/23 12:37 99 Oxymask 9 01/26/23 11:00 99 Room Air 01/26/23 10:44 94 01/26/23 10:44 01/26/23 10:30 92 01/26/23 10:00 95 01/26/23 09:31 01/26/23 09:00 96 01/26/23 09:00 01/26/23 08:30 92 01/26/23 08:30 01/26/23 08:24 91 01/26/23 08:24 01/26/23 07:00 95 01/26/23 07:00 01/26/23 06:36 98 01/26/23 10:41 92 Room Air 01/26/23 08:06 98 Room Air 01/26/23 06:35 01/26/23 06:20 98 Room Air 01/26/23 06:02 98 Room Air Pain Intensity Right Flank: Pain Intensity: 8 Transfer of Care Handoff Completed per policy Notes Mental Status: alert / awake / arousable and participated in evaluation Patient Amnestic to Procedure: Yes Nausea / Vomiting: adequately controlled Pain: adequately controlled Airway Patency, RR, SpO2: stable & adequate BP & HR: stable & adequate Hydration State: stable & adequate Anesthetic Complications: no major complications apparent and Pt Satisfied with anesthetic care
[2023-01-26] MEDS ORDERED: MEPERIDINE HCL 25 MG/ML CARP/VIAL ONE (13:31)
[2023-01-26] MEDS ORDERED: MEPERIDINE HCL 50 MG/ML CARP IV STA (13:33)
--- NOTE | 2023-01-26 13:52 | Electrocardiogram Report ---
Test Reason : Blood Pressure : / mmHG Vent. Rate : 098 BPM Atrial Rate : 098 BPM P-R Int : 150 ms QRS Dur : 084 ms QT Int : 330 ms P-R-T Axes : 040 -04 045 degrees QTc Int : 421 ms Sinus rhythm with Premature supraventricular complexes Possible Left atrial enlargement Inferior infarct , age undetermined Poor R wave progression, consider anterior TX vs. lead placement vs. LVH Abnormal ECG When compared with ECG of 17-AUG-2020 14:41, Significant changes have occurred Confirmed by Tanner Pacheco ([id number]) on 01/26/2023 1:52:20 PM Referred By: REFERRED SELF Confirmed By:Tanner Pacheco
[2023-01-26] MEDS: GABAPENTIN 300 MG CAP PO SCH ×2 (15:40→19:42)
[2023-01-26] MEDS ORDERED: PHENAZOPYRIDINE HCL 200 MG TAB PO PRN (17:27)
[2023-01-26] MEDS: PHENAZOPYRIDINE HCL 200 MG TAB PO PRN (18:56)
[2023-01-26] MEDS: FAMOTIDINE 20 MG in SYRINGE 3 ML IV SCH (19:39)
[2023-01-26] MEDS: PANTOprazole 40 MG in SYRINGE 0 ML IV SCH (19:42)
[2023-01-27 04:21] LABS: A calco-baum cmplx NotReported Not Detected (NotDetected); Bact fragilis Not Reported Not Detected (NotDetected); C auris Not Reported Not Detected (NotDetected); CTX-M Resistant Gene Not Detected (NotDetected); Calbicans Not Reported Not Detected (NotDetected); Candida glabrata Not Reported Not Detected (NotDetected); Candida krusei Not Reported Not Detected (NotDetected); Cneoformans/gatti Not Reported Not Detected (NotDetected); Cparapsilosis Not Reported Not Detected (NotDetected); Ctropicalis Not Reported Not Detected (NotDetected); E cloacae compx Not Reported Not Detected (NotDetected); Efaecalis Not Reported Not Detected (NotDetected); Efaecium Not Reported Not Detected (NotDetected); Enterobacterales DETECTED (NotDetected); Enterobacterales Not Reported DETECTED (NotDetected); Escherichia coli Not Reported DETECTED (NotDetected); H influenzae Not Reported Not Detected (NotDetected); IMP Resistant Gene Not Detected (NotDetected); K aerogenes Not Reported Not Detected (NotDetected); KPC Resistant Gene Not Detected (NotDetected); Koxytoca Not Reported Not Detected (NotDetected); Kpneumoniae grp Not Reported Not Detected (NotDetected); Lmonocyt Not Reported Not Detected (NotDetected); N meningitidis Not Reported Not Detected (NotDetected); NDM Resistant Gene Not Detected (NotDetected); OXA 48 Like Resistant Gene Not Detected (NotDetected); P aeruginosa Not Reported Not Detected (NotDetected); Proteus spp Not Reported Not Detected (NotDetected); Salmonella spp Not Reported Not Detected (NotDetected); Smarcescens Not Reported Not Detected (NotDetected); Staph lugdunensis Not Reported Not Detected (NotDetected); Staph spp. Not Reported Not Detected (NotDetected); Staphaureus Not Reported Not Detected (NotDetected); Staphepi Not Reported Not Detected (NotDetected); Stenmaltophilia Not Reported Not Detected (NotDetected); Strep agal(GrpB) Not Reported Not Detected (NotDetected); Strep pneum Not Reported Not Detected (NotDetected); Strep pyog (GrpA) Not Reported Not Detected (NotDetected); Strep spp Not Reported Not Detected (NotDetected); VIM Resistant Gene Not Detected (NotDetected); mcr-1 Colistin Resistant Gene Not Detected (NotDetected)
[2023-01-27] MEDS: LEVOTHYROXINE SODIUM 125 MCG TABLET PO SCH (06:09)
--- NOTE | 2023-01-27 07:39 | Hospitalist Progress Note ---
Date of Service January 27, 2023 Assessment & Plan (1) Calculus of proximal right ureter: Plan: 62yo Female with PMH breast cancer on chemo, HTN, GERD, hypothyroidism, sleep apnea here for right sided nephrolithiasis and bacteremia (1) Right nephrolithiasis with Bacteremia: -Admit to med/surge -CT abd: Obstructive stone in the right proximal ureter measuring 0.8 mm with associated right hydronephrosis -In ED given Ceftriaxone, IVF, morphine, toradol, zofran -Bcx gram negative bacilli pending -Initial lactate 2.3 downtrending s/p stent -continue 2gm IV ceftriaxone q24H -Urology consulted started flomax stent placed 01/26/23 with ureteral dilation Recommend d/c with Tamsulosin, prn Pyridium, prn Oxybutynin and prn pain medication for stent management transition to PO abx when appropriate -trend CBC (2) Foraminal stenosis of lumbosacral region: -Continue gabapentin (3) Breast cancer: -Continue Letrozole (4) Hypertension: -Hold Losartan -continue metoprolol (5) GERD (gastroesophageal reflux disease): -Likely has some component of gastritis and esophagitis from vomiting -started BID famotidine and pantoprazole here -If no improvement can consider further imaging of her abd/pelvis (6) Hypothyroidism: -Continue levothyroxine (7) Sleep apnea: -HS CPAP ordered (2) Hydronephrosis of right kidney: (3) Bacteria in urine: (4) Breast cancer: (5) Hypertension: (6) GERD (gastroesophageal reflux disease): (7) Sleep apnea: (8) Bacteremia: Admission and Anticipated Discharge Date Admission Date: January 26, 2023 Supervising Physician Co-Signing Physician Notes I personally examined the patient and verified all [facility] points of history and exam, discussed case, and agree with decision making with Dr Moeller. Feeling betternot great but better. No new complaints. Updated on working diagnosis, plan, etc. Patient expressed good understanding. Vitals noted, in general she is fatigued but no distress. HEENT normocephalic atraumatic mucous membranes moist. Breathing unlabored no accessory muscle use good effort. Skin shows no rashes no pallor or icterus. Neuro without focal deficits. C BC/BMP/blood and urine cultures reviewed. Ureterolithiasis/UTI (probable pyelonephritis, sepsis present on admissionSIRS criteria somewhat incongruities given that her white count bumped today, but given her gram-negative bacteremia I strongly believe sepsis present on admission, which also would explain her lactic acidosis which has resolved)continue ceftriaxone pending full identification and sensitivities. Otherwise as above. DVT proph - lovenox Subjective Patient seen at bedside, calm comfortable cooperative. Patient states she is f eeling better than yesterday, however still have fever night sweats last night, has right sided abd pain radiating to her back which she attributes to her stent, still has pain with urination. Patient is aware she has bacteremia and will need to stay in the hospital until we can ascertain her outpatient antibiotic regime. Otherwise eating ok, no BM in past 2 days states she is gassy. Physical Exam Constitutional: WD/WN, vitals as above Eyes: PERRL, conjunctivae normal, anicteric sclerae ENMT: external ear and nose normal, oropharynx normal Neck: trachea midline, no thyromegaly Respiratory: normal respiratory effort, lungs clear to auscultation Cardiovascular: RRR, no murmur, no edema Gastrointestinal (Abdomen): Inspection/Auscultation: abdomen normal to inspection Percussion/Palpation: + abdomen tender (right sided abd and suprapubic area) and abdomen soft Skin: no rashes, warm and dry Results & Data Results & Data Vital Signs (Past 12 Hours) Vital Signs Temp Pulse Resp BP Pulse Ox Pulse Ox O2 Del Method 01/27/23 03:54 36.8 C 61 14 108/70 94 Room Air 01/26/23 19:40 95 01/27/23 00:03 37.3 C 01/26/23 19:40 Room Air 01/26/23 22:58 37.8 C H 76 16 99/60 L 92 Room Air 01/26/23 19:50 37.2 C 85 16 99/61 L 94 Room Air O2 Del Method 01/27/23 03:54 01/26/23 19:40 Room Air 01/27/23 00:03 01/26/23 19:40 01/26/23 22:58 01/26/23 19:50 Resident Activity Tracking Resident Involvement: Resident Care Provided Care Provided: Adult [place] [facility] (4) Breast cancer Breast location: unspecified site of breast Estrogen receptor status: unspecified Laterality: right Patient sex: female Qualified Code(s): C50.911 - Malignant neoplasm of unspecified site of right female breast
[2023-01-27] MEDS: FAMOTIDINE 20 MG in SYRINGE 3 ML IV SCH (08:29)
[2023-01-27] MEDS: PANTOprazole 40 MG in SYRINGE 0 ML IV SCH (08:29)
[2023-01-27] MEDS: TAMSULOSIN HCL 0.4 MG CAP PO SCH (08:44)
[2023-01-27] MEDS: LETROZOLE 2.5 MG TAB PO SCH (08:44)
[2023-01-27] MEDS: GABAPENTIN 300 MG CAP PO SCH ×3 (08:45→21:39)
[2023-01-27] MEDS: METOPROLOL TARTRATE 50 MG TAB PO SCH (08:45)
[2023-01-27] MEDS: PHENAZOPYRIDINE HCL 200 MG TAB PO PRN (08:45)
[2023-01-27 08:55] LABS: BUN Creatinine Ratio 19.3 (10-20); Blood Urea Nitrogen 21 mg/dl (6-23); Calcium 8.9 mg/dl (8.6-10.3); Carbon Dioxide 24 mmol/L (21-32); Chloride 106 mmol/L (98-107); Creatinine Clr Calc Pharmacy 54.1 ml/min; Est GFR (African American) 62.1 ml/min; Est GFR (Non-African American) 53.6 ml/min; Glucose 122 mg/dl (70-99(Fasting))
--- NOTE | 2023-01-27 09:01 | Urology Progress Note ---
Date of Service January 27, 2023 Assessment & Plan (1) Calculus of proximal right ureter: (2) Hydronephrosis of right kidney: Plan: - Pt POD#1 s/p Cystoscopy, right retrograde pyelogram, Right ureteroscopy and ureteral dilation, right stent placement - Doing well, progressing as expected - Afebrile, lab work reviewed - creatinine 1.09, WBC 9.04 on 01/26 - Urine and blood cultures are growing gram negative bacilli - Continue broad spectrum antibiotics and narrow per sensitivity data when available - Tolerating right ureteral stent with minimal bother - Recommend transition to appropriate PO antibiotics for complicated UTI upon discharge - She will require stone treatment after acute infection has been treated - Recommend d/c with Tamsulosin, prn Pyridium, prn Oxybutynin and prn pain medication for stent management - Expected clinical course reviewed, all questions answered - Will arrange outpatient follow-up with our service to discuss definitive stone management Admission and Anticipated Discharge Date Admission Date: January 26, 2023 Subjective Patient seen and examined at bedside this morning. She is awake, alert and sitt ing up at the side of the bed. She reports some mild right-sided discomfort. She also notes abdominal bloating. She is tolerating p.o. diet. No nausea or vomiting. No fever or chills. She is voiding without difficulty, but notes some flank discomfort with voids. Review of Systems Constitutional: as per Subjective / HPI Gastrointestinal: as per Subjective / HPI Genitourinary: as per Subjective / HPI Physical Exam Constitutional: well developed and well nourished; no acute distress and not ill appearing Respiratory: normal respiratory effort and able to speak in complete sentences; no respiratory distress and no labored breathing Cardiovascular: Extremities: no pedal edema Gastrointestinal (Abdomen): Inspection/Auscultation: abdomen normal to inspection; abdomen not distended Neurologic: moves all extremities and awake Psychiatric: Orientation: alert and oriented x 3 Results & Data Vital Signs (Past 12 Hours) Vital Signs Temp Pulse Resp BP Pulse Ox O2 Del Method 01/27/23 08:01 37.0 C 70 14 115/71 94 Room Air 01/27/23 03:54 36.8 C 61 14 108/70 94 Room Air 01/27/23 00:03 37.3 C 01/26/23 22:58 37.8 C H 76 16 99/60 L 92 Room Air PG Care Time/CCT Total # of Minutes Spent Total Time Spent with Patient: Total time spent is greater than 50% in coordination of care (as documented) at patient's floor/unit and/or counseling patient: Coding Level of Care Code 43710 SUB INP/OBS CARE 1/25MIN Diagnoses Calculus of proximal right ureter N20.1 Hydronephrosis of right kidney N13.30
[2023-01-27] MEDS: cefTRIAXone SODIUM 2,000 MG in DEXTROSE 5% 50 ML IV SCH (09:53)
[2023-01-27 10:26] LABS: Basophils # (auto) 0.09 K/uL (0-0.2); Basophils % (auto) 0.5 %; Eosinophils # (auto) 0.05 K/uL (0-0.50); Eosinophils % (auto) 0.3 %; Hematocrit (blood only) 34.6 % (37.0-47.0); Hemoglobin 11.7 g/dl (12.0-16.0); Immature Granulocytes # (auto) 0.08 K/uL (0.01-0.20); Immature Granulocytes % (auto) 0.5 %; Lymphocytes # (auto) 0.82 K/uL (1.2-3.4); Lymphocytes % (auto) 4.9 %; Mean Corpuscular Hemoglobin 30.2 pg (25.0-34.0); Mean Corpuscular Hgb Conc 33.8 g/dL (32.0-36.0); Mean Corpuscular Volume 89.4 fL (80.0-100.0); Mean Platelet Volume 10.6 fL (9.4-12.4); Monocytes # (auto) 0.88 K/uL (0.11-0.59); Monocytes % (auto) 5.3 %; Neutrophils # (auto) 14.83 K/uL (1.40-6.50); Neutrophils % (auto) 88.5 %; Platelet Count 203 K/uL (130-400); RDW Coefficient of Variation 13.2 % (11.5-14.5); RDW Standard Deviation 43.2 fL (36.4-46.3); Red Blood Count 3.87 M/uL (4.20-5.40); White Blood Count 16.75 K/ul (4.8-10.8)
[2023-01-27 10:48] LABS: Magnesium 1.9 mg/dl (1.7-2.4); Potassium 3.7 mmol/L (3.5-5.1)
[2023-01-27] MEDS ORDERED: Nursing to Pharmacy Communication SCH (15:15)
[2023-01-27] MEDS ORDERED: DOCUSATE SODIUM 100 MG CAP PO ONE (15:45)
--- NOTE | 2023-01-27 18:16 | Billing Data ---
Date of Service January 27, 2023 Coding Level of Care Code 47800 SUB INP/OBS CARE MIN
[2023-01-27] MEDS: PANTOprazole 40 MG TAB PO SCH (21:40)
[2023-01-27] MEDS: FAMOTIDINE 20 MG TAB PO SCH (21:40)
[2023-01-27] MEDS: DOCUSATE SODIUM 100 MG CAP PO SCH (21:44)
[2023-01-27] MEDS: POLYETHYLENE (MIRALAX) 17 GM PACK PO PRN (22:02)
[2023-01-28] MEDS: LEVOTHYROXINE SODIUM 125 MCG TABLET PO SCH (06:00)
[2023-01-28 06:38] LABS: Basophils # (auto) 0.06 K/uL (0-0.2); Basophils % (auto) 0.6 %; Eosinophils # (auto) 0.21 K/uL (0-0.50); Hematocrit (blood only) 35.6 % (37.0-47.0); Hemoglobin 12.1 g/dl (12.0-16.0); Immature Granulocytes # (auto) 0.03 K/uL (0.01-0.20); Immature Granulocytes % (auto) 0.3 %; Lymphocytes # (auto) 1.26 K/uL (1.2-3.4); Mean Corpuscular Volume 88.3 fL (80.0-100.0); Mean Platelet Volume 10.9 fL (9.4-12.4); Monocytes # (auto) 0.76 K/uL (0.11-0.59); Monocytes % (auto) 7.2 %; Neutrophils % (auto) 77.9 %; Platelet Count 193 K/uL (130-400); RDW Standard Deviation 42.1 fL (36.4-46.3); Red Blood Count 4.03 M/uL (4.20-5.40); White Blood Count 10.52 K/ul (4.8-10.8)
[2023-01-28 07:00] LABS: BUN Creatinine Ratio 19.4 (10-20); Calcium 8.6 mg/dl (8.6-10.3); Creatinine Clr Calc Pharmacy 60.2 ml/min; Est GFR (African American) 70.7 ml/min; Potassium 4.2 mmol/L (3.5-5.1)
--- NOTE | 2023-01-28 07:17 | Hospitalist Progress Note ---
Date of Service January 28, 2023 Assessment & Plan (1) Calculus of proximal right ureter: Plan: 62yo Female with PMH breast cancer on chemo, HTN, GERD, hypothyroidism, sleep apnea here for right sided nephrolithiasis and bacteremia (1) Right nephrolithiasis with Bacteremia: -Admit to med/surge -CT abd: Obstructive stone in the right proximal ureter measuring 0.8 mm with associated right hydronephrosis -In ED given Ceftriaxone, IVF, morphine, toradol, zofran -Bcx gram negative bacilli pending -Initial lactate 2.3 downtrending s/p stent -continue 2gm IV ceftriaxone q24H -Urology consulted started flomax stent placed 01/26/23 with ureteral dilation Recommend d/c with Tamsulosin, prn Pyridium, prn Oxybutynin and prn pain medication for stent management transition to PO abx when appropriate -trend CBC (2) Foraminal stenosis of lumbosacral region: -Continue gabapentin (3) Breast cancer: -Continue Letrozole (4) Hypertension: -Hold Losartan -continue metoprolol (5) GERD (gastroesophageal reflux disease): -Likely has some component of gastritis and esophagitis from vomiting -started BID famotidine and pantoprazole here -If no improvement can consider further imaging of her abd/pelvis (6) Hypothyroidism: -Continue levothyroxine (7) Sleep apnea: -HS CPAP ordered (2) Hydronephrosis of right kidney: (3) Bacteria in urine: (4) Breast cancer: (5) Hypertension: (6) GERD (gastroesophageal reflux disease): (7) Sleep apnea: (8) Bacteremia: Admission and Anticipated Discharge Date Admission Date: January 26, 2023 Physical Exam Constitutional: WD/WN, vitals as above Eyes: PERRL, conjunctivae normal, anicteric sclerae ENMT: external ear and nose normal, oropharynx normal Neck: trachea midline, no thyromegaly Respiratory: normal respiratory effort, lungs clear to auscultation Cardiovascular: RRR, no murmur, no edema Gastrointestinal (Abdomen): Inspection/Auscultation: abdomen normal to inspection Percussion/Palpation: + abdomen tender (right sided abd and suprapubic area) and abdomen soft Skin: no rashes, warm and dry Results & Data Results & Data Vital Signs (Past 12 Hours) Vital Signs Temp Pulse Resp BP Pulse Ox Pulse Ox O2 Del Method 01/28/23 01:14 97 01/27/23 23:55 37.3 C 77 14 134/77 97 Room Air O2 Del Method 01/28/23 01:14 Room Air 01/27/23 23:55 (4) Breast cancer Breast location: unspecified site of breast Estrogen receptor status: unspecified Patient sex: female Laterality: right Qualified Code(s): C50.911 - Malignant neoplasm of unspecified site of right female breast
[2023-01-28] MEDS: METOPROLOL TARTRATE 50 MG TAB PO SCH (07:44)
[2023-01-28] MEDS: DOCUSATE SODIUM 100 MG CAP PO SCH (07:45)
[2023-01-28] MEDS: FAMOTIDINE 20 MG TAB PO SCH (07:45)
[2023-01-28] MEDS: PHENAZOPYRIDINE HCL 200 MG TAB PO PRN (07:45)
[2023-01-28] MEDS: PANTOprazole 40 MG TAB PO SCH (07:46)
[2023-01-28] MEDS: TAMSULOSIN HCL 0.4 MG CAP PO SCH (07:46)
[2023-01-28] MEDS: LETROZOLE 2.5 MG TAB PO SCH (07:46)
[2023-01-28] MEDS: GABAPENTIN 300 MG CAP PO SCH (07:47)
[2023-01-28] MEDS: POLYETHYLENE (MIRALAX) 17 GM PACK PO PRN (08:07)
[2023-01-28] MEDS: cefTRIAXone SODIUM 2,000 MG in DEXTROSE 5% 50 ML IV SCH (08:09)
[2023-01-28] MEDS ORDERED: ENOXAPARIN INJ 40 MG/0.4 ML SYR SQ SCH (09:00)
--- NOTE | 2023-01-28 12:07 | Discharge Summary ---
Date of Service January 28, 2023 Admission HPI Per Admitting Provider Cassandra is a 62 year old female with a PMH significant for lumbar stenosis, HTN, GERD, hypothyroidism, ARIELLE, migraines, previous nephrolithiasis, and breast cancer S/P BL mastectomy, currently on letrozole who presented to the [facility] ED on 01/26/23 with a chief complaint of right flank pain. In the ED the patient was initially found to be afebrile, hemodynamically stable, and stable on RA. Labs were remarkable for a CBC WNL, stable Cr at 1.16, electrolytes and LFT's WNL, glucose of 173, UA suggestive of UTI. Gallbladder US was read as "1. Obstructive stone in the right proximal ureter measuring 0.8 mm. There is ass ociated hydronephrosis. 2. Hepatic steatosis. 3. Gallbladder polyp. Gallbladder polyps are seen. By SRU criteria, no further evaluation or follow-up is necessary.". The ED spoke to Urology who recommended admitting the patient for IV antibiotics and further monitoring prior to taking her to the OR for stent placement. Prior to admission the patient was given 1L NSS bolus, 30 mg IV toradol, 12 total mg IV morphine, 4 mg IV zofran, and 2gm IV Ceftriaxone. At the time of the exam the patient was lying in bed in no acute distress. She was initially on 3L NC at the beginning of the exam. On inspection the pulse oximetry probe was on her right index finer, her fingernails are painted. She denies SOB, is not a tobacco use, and does not have a history of pulmonary disease. She states that she has a history of kidney stones in the past that have required lithotripsy. She started to develop RUQ abdominal pain which radiates to her back at approximately 0330 this am. She denies the pain radia ting anywhere else. She started to develop, fever, chills, nausea and multiple episodes of non-bloody emesis. She has had a total of 6 episodes of vomiting and is now having some epigastric pain. She has a history of severe gastritis and esophagitis, she states this feels similar to her chronic gastric pain. She denies any other abd pain, dysuria, hematuria, melena, diarrhea, LE swelling, and recent trauma. She last ate at approximately 2130 last night. We discussed code status, she wishes to be a full code and for her daughters to make medial decisions for her if she cannot make them herself. Please refer to Dr. Love's attestation for any changes to the treatment plan Admission Exam Per Admitting Provider Physical Exam: General:In no acute distress, stated age, well-nourished, good hygiene, non- toxic appearing HEENT:Normocephalic, atraumatic, no scleral icterus, pupils around round, symmetrical, and reactive to light, moist mucus membranes, trachea midline, no thyromegaly Chest/Pulm:No respiratory distress, symmetrical chest expansion, clear breath sounds throughout Cardiac:RRR, no murmurs noted Abdomen:Negative for ascites and bruising, normoactive bowel sounds, soft, tender to palpation in the epigastric region and RUQ, no hepatomegaly or rebound tenderness :+ CVA tenderness on the right side Musculoskeletal:Symmetrical and without signs of acute trauma, upper and lower extremities with full ROM, no atrophy, spasticity, or flaccidity Extremities:Radial, dorsalis pedis, and posterior tibial pulses are intact and symmetrical, no edema noted in the BL LE's Skin:Warm, dry, no rashes , lesions, or scars noted Neuro:Alert and oriented to person, place, month, year, and president, no focal defects, no tremors noted Psych:No acute distress, calm and cooperative during the exam Principal Diagnosis Nephrolithiasis with Bacteremia Discharge Exam Constitutional: WD/WN, vitals as above Eyes: PERRL, conjunctivae normal, anicteric sclerae ENMT: external ear and nose normal, oropharynx normal Neck: trachea midline, no thyromegaly Respiratory: normal respiratory effort, lungs clear to auscultation Cardiovascular: RRR, no murmur, no edema Gastrointestinal (Abdomen): Inspection/Auscultation: abdomen normal to inspection Percussion/Palpation: + abdomen tender (right sided abd and suprapubic area) and abdomen soft Skin: no rashes, warm and dry Constitutional: WD/WN, vitals as above Eyes: PERRL, conjunctivae normal, anicteric sclerae ENMT: external ear and nose normal, oropharynx normal Neck: trachea midline, no thyromegaly Respiratory: normal respiratory effort, lungs clear to auscultation Cardiovascular: RRR, no murmur, no edema Gastrointestinal (Abdomen): Inspection/Auscultation: abdomen normal to inspection Percussion/Palpation: + abdomen tender (right sided abd and suprapubic area) and abdomen soft Skin: no rashes, warm and dry Discharge Data Allergies Allergy/AdvReac Type Severity Reaction Status Date / Time metoclopramide AdvReac Unknown RASH Verified 01/26/23 10:38 Consultations 01/26/23 09:34 ED Decision to Admit Stat 01/26/23 10:21 Consult Urology Routine Procedures Performed Operation Date: 01/26/23 11:25 Actual Procedures p Cystoscopy - Migue Fuentes DO s Right Ureteral Stent Insertion, right ureteral dilation, right retrograde pyelogram, right ureteroscopy(Right) - Migue Fuentes DO Ordered Studies 01/26/23 06:28 US gallbladder Stat 01/26/23 11:30 FL KUB Routine Hospital Course (1) Calculus of proximal right ureter: 62yo Female with PMH breast cancer on chemo, HTN, GERD, hypothyroidism, sleep apnea here for right sided nephrolithiasis and bacteremia -on cefdinir 300mg BID 7 days (for total 10 days) (1) Right nephrolithiasis with Bacteremia: -Admit to med/surge -CT abd: Obstructive stone in the right proximal ureter measuring 0.8 mm with associated right hydronephrosis -In ED given Ceftriaxone, IVF, morphine, toradol, zofran -Bcx gram negative bacilli, serology + ecoli and enterobacterales -Initial lactate 2.3 downtrending s/p stent -started on ceftriaxone, will dc on cefdinir 300mg BID 7 days (for total 10 days) -Urology consulted started flomax stent placed 01/26/23 with ureteral dilation (2) Foraminal stenosis of lumbosacral region: -Continue gabapentin (3) Breast cancer: -Continue Letrozole (4) Hypertension: -Hold Losartan in hospital, resume in outpatient -continue metoprolol (5) GERD (gastroesophageal reflux disease): -Likely has some component of gastritis and esophagitis from vomiting -started BID famotidine and pantoprazole in hospital (6) Hypothyroidism: -Continue levothyroxine (7) Sleep apnea: -HS CPAP ordered (2) Hydronephrosis of right kidney: (3) Bacteria in urine: (4) Breast cancer: (5) Hypertension: (6) GERD (gastroesophageal reflux disease): (7) Sleep apnea: (8) Bacteremia: Total Time Total Time Spent Total Time Spent (In Minutes): <30 Discharge Plan Discharge Items Patient Disposition: Home - Self-Care Reason For Visit: RIGHT FLANK PAIN Discharge Diagnosis: Nephrolithiasis Activity: Resume your previous activity Non-emergency contact: Primary Care Provider Call non-emergency contact if: you have any medication questions, your symptoms worsen and you have a fever Follow-up/Referrals: Migue Fuentes DO [Physician] - 02/04/23 2:00 pm (stent removal) Juanita Dooley MD [Primary Care Provider] - Diet: Regular Addtl Attending Provider Instructions: You were admitted to the hospital for a right sided kidney stone. You were seen by Urology, and a stent was placed in your right ureter. You were also found to have bacteria in your blood, and were treated with antibiotics. Please finish y our course of antibiotics at home. Please follow up with Urology to have the stent and kidney stone removed. A discharge summary will be sent to your primary care physician to ensure continuity of care. Please bring this discharge summary with you to your next office appointment so that your provider can review it at that time. Follow-up appointments: Make a follow-up appointment with your PCP within the next week. It is very important that you follow up with them shortly after discharge from the hospital. Keep all your follow-up appointments as already scheduled. If you cannot make an appointment, notify your provider. Medications: Your medication list has been reviewed and reconciled upon discharge to ensure accuracy and continuity of care. An updated list of all your medications is included with your hospital discharge paperwork. Please review this list closely, and make note of any changes. * We sent a new medication called Cefdinir to your pharmacy. Take Cefdinir 300mg one tablet twice a day for 7 days. * You may use Pyridium (AZO, found over the counter) as needed for ureteral discomfort for up to 2 days * Please use tylenol as needed for pain and fever Take your medications as instructed; do not skip a dose of your medicines. Make sure all of your doctors know every medicine you are taking (including seuk-wah-[id number] medicines, vitamins, and supplements). Call your primary care provider before taking any new medicines (including hhqg-arb-dezcmnv medicines, vitamins, and supplements), because some of these may interact with your current medications, or may make your symptoms worse. Tell your primary care provider if you cannot afford your medications. CONTACT YOUR PRIMARY CARE PROVIDER if you experience any of the following: Fever, nausea Chills, night sweats, bloody urine, pain with urination Difficulty following your treatment plan, or difficulty taking medications CALL 911 OR GO TO THE EMERGENCY DEPARTMENT if you experience any of the following: Sudden, severe abdominal pain or nausea/vomiting Severe chest pain, or chest pain that radiates (moves) to your jaw or arm Sudden, severe shortness of breath or difficulty breathing Thank you for allowing us to participate in your care. Pending Studies at Discharge: No Stand-Alone Forms: My [facility], Smoking Cessation Medications and DC Order Prescriptions: New cefdinir 300 mg capsule 300 mg PO BID 7 Days Qty: 14 0RF Rx Instructions: Please take first dose tomorrow 01/29/23 Continued levothyroxine [Synthroid] 125 mcg tablet 125 mcg PO [id number] Patient Comments: do not take on sundays Rx Instructions: dont take on sundays gabapentin 100 mg capsule 300 mg PO TID potassium citrate 15 mEq tablet extended release 15 meq PO BID Qty: 180 3RF Nurtec ODT 75 mg tablet,disintegrating 75 mg PO .COMPLEX Qty: 15 5RF Rx Instructions: 75 mg PO every other day to prevent migraines. Do not take as needed. letrozole 2.5 mg tablet 2.5 mg PO QAM calcium carbonate [Calcium 600] 600 mg calcium (1,500 mg) tablet 600 mg PO DAILY cholecalciferol (vitamin D3) 50 mcg (2,000 unit) capsule 50 mcg PO DAILY pantoprazole [Protonix] 40 mg tablet,delayed release (DR/EC) 40 mg PO QAM metoprolol tartrate 50 mg tablet 50 mg PO QAM Probiotic 3 billion cell Capsule 0 mmu cells PO QAM Rx Instructions: unknown strength cetirizine 10 mg Tablet 10 mg PO DAILY PRN (Reason: allergies) losartan 100 mg tablet 100 mg PO QAM cyanocobalamin (vitamin B-12) [Vitamin B-12] 1,000 mcg Tablet 1,000 mcg PO QAM ascorbic acid (vitamin C) [Vitamin C] 1,000 mg Tablet 1 g PO QAM magnesium 250 mg Tablet 500 mg PO DAILY Discharge Orders: Discharge Order (Routine); Ordered 01/28/23 Ordered By: Lyn Elaine/Other Patient Handouts: Having a Ureteral Stent, Cystoscopy Admission Data Admit Date/Time: 01/26/23 10:21 Attending Provider: Mark Rea Admit Provider: Shree Love Primary Care Provider: Juanita Dooley Other Providers: Gregg Collier ; Migue Fuentes Other Interventions: Discharge Summary Assessment (RN) Last Done: 01/28/23 12:32 Supervising Physician Co-Signing Physician Notes I personally examined the patient and verified all medina points of history and exam, discussed case, and agree with decision making with Dr Moeller Feeling better still. Slowly but surely. Discussed risk/benefit with plans of going home on p.o. antibiotics given that her urine is pansensitive and blood cultures will likely match, versus staying into tomorrow to allow blood cultures to finalize. She understands risk benefit of both approaches and opts to go home.. CBC/BMP/blood and urine cultures reviewed. Ureterolithiasis/UTI (probable pyelonephritis, sepsis present on admissionSIRS criteria somewhat incongruities given that her white count bumped on hospital day 2, but given her gram-negative bacteremia I strongly believe sepsis present on admission, which also would explain her lactic acidosis which has resolved)urine showing pansensitive E. coli. Discharged on p.o. cefdinir to complete 10-14 days of therapy (duration to be determined based on how she appears an outpatient follow-up). Patient aware the blood cultures are still pendingwe will follow, if any change in therapy is warranted, will contact patient, although this is very unlikely to be the case. DVT proph - lovenox utilized while here Outpatient PCP and urology follow-up, safe/stable for home Resident Activity Tracking Resident Involvement: Resident Care Provided Care Provided: Adult Hospital Medicine
--- NOTE | 2023-01-28 18:38 | Billing Data ---
Date of Service January 28, 2023 Coding Level of Care Code 51462 IN/OBS DISCH 30 MIN/LESS
--- NOTE | 2023-01-28 18:40 | Billing Data ---
Date of Service January 28, 2023 Coding Level of Care Code 67725 IN/OBS DISCH 30 MIN/LESS
== END 2023-01-28 14:00 | disposition home or self-care (01) | DRG 660 ==
LOC: ED 05:58 → SUATTDRO 10:21 → EDINP 10:21 → 3E 14:05